=== PATIENT | male | born 1950 | race Caucasian/White ===

== ENCOUNTER → 2016-06-23 | Outpatient (REF) | payer OTHER | LOC: M LAB REF 09:20 | PROVIDERS: ATTEND Family Medicine | DX: I50.31 Acute diastolic (congestive) heart failure (principal) ==

== ENCOUNTER → 2016-07-03 | Outpatient (REF) | payer OTHER ==
[2016-07-03 13:37] LABS: RETIC HEMOGLOBIN CONTENT CHr 29.5 PG (24-36); RETICULOCYTE % ADVIA2120 1.2 % (0.5-1.5)
[2016-07-03 13:46] LABS: FERRITIN 71 NG/ML (26-388); PERCENT SATURATION 15.4 % (19.7-37.4); TOTAL IRON BINDING CAPACITY 410 UG/DL (250-450)
[2016-07-03 13:49] LABS: VITAMIN B12 LEVEL 333 PG/ML
[2016-07-03 13:50] LABS: FOLATE > 24.0 NG/ML
== END ==
LOC: M LAB REF 13:13
PROVIDERS: ATTEND Family Medicine
DX: D64.9 Anemia, unspecified (principal)

== ENCOUNTER → 2016-07-06 | Outpatient (CLI) | payer OTHER ==
[2016-07-06 13:08] LABS: INR 2.04
== END ==
LOC: M WUC 09:56
PROVIDERS: ATTEND Physician Assistant
DX: I48.91 Unspecified atrial fibrillation (principal)

== ENCOUNTER → 2016-07-15 | Outpatient (CLI) | payer OTHER ==
[2016-07-15 12:47] LABS: INR 1.23
[2016-07-15 13:05] LABS: ALBUMIN 3.7 GM/DL (3.2-5.2); CALCIUM LEVEL 8.9 MG/DL (8.8-10.2); CREATININE FOR GFR 1.87 MG/DL (0.70-1.30); GLOMERULAR FILTRATION RATE 38.6 (>49); PHOSPHORUS LEVEL 2.7 MG/DL (2.5-4.9); POTASSIUM SERUM 3.9 MEQ/L (3.5-5.1)
== END ==
LOC: M WUC 09:59
PROVIDERS: ATTEND Physician Assistant
DX: I50.32 Chronic diastolic (congestive) heart failure (principal); Z79.01 Long term (current) use of anticoagulants

== ENCOUNTER → 2016-07-21 | Outpatient (CLI) | payer OTHER ==
--- NOTE | 2016-07-21 11:03 | REP ---
TRANSRECTAL PROSTATE ULTRASOUND WITH ULTRASOUND GUIDANCE FOR PROSTATE BIOPSY: Transrectal prostate ultrasound performed. The size of the prostate is 6.1 x 6.4 x 6.2 cm for a total volume of 125 mL. Several nodular areas are seen which are hypoechoic, on the right four nodules are seen, with the largest 10 x 9 mm. On the left, a nodule is seen measuring 12 x 10 mm. Seminal vesicles appear symmetrical. Ultrasound guidance was provided for Dr. Valentine who performed ultrasound guided biopsy of the prostate. Signed by Denis Holloway MD 07/21/2016 02:01 P
== END | disposition home or self-care (01) ==
LOC: M SMT PRO 08:56
PROVIDERS: ATTEND Urology
DX: N41.8 Other inflammatory diseases of prostate (principal); R97.20 Elevated prostate specific antigen [PSA]
CPT/HCPCS: 55700; 76872; 76942; G0416

== ENCOUNTER 2016-07-22 20:03 | Emergency (ER) | payer OTHER ==
[2016-07-22 20:46] LABS: BASO % 0.3 % (0.0-1.0); EOS % 0.1 % (0.0-3.0); LARGE UNSTAINED CELL # 0.4 K/mm3 (0.0-0.4); LARGE UNSTAINED CELL % 2.5 % (0.0-4.0); LYMPH # 1.2 K/mm3 (1.5-4.5); LYMPH % 8.7 % (24.0-44.0); MEAN CORPUSCULAR HEMOGLOBIN 27.6 pg (27.0-33.0); MEAN CORPUSCULAR HGB CONC 32.8 g/dl (32.0-36.5); MEAN CORPUSCULAR VOLUME 84.2 fl (80.0-96.0); MONO # 0.7 K/mm3 (0.0-0.8); MONO % 4.8 % (0.0-5.0); NEUTROPHILS # 11.8 K/mm3 (1.8-7.7); NEUTROPHILS % 83.6 % (36.0-66.0); PLATELET COUNT, AUTOMATED 168 k/mm3 (150-450); RED CELL DISTRIBUTION WIDTH 15.7 % (11.5-14.5); WHITE BLOOD COUNT 14.1 K/mm3 (4.0-10.0)
[2016-07-22 20:54] LABS: INR 1.28
[2016-07-22 21:13] LABS: ALBUMIN/GLOBULIN RATIO 0.73 (1.00-1.93); BILIRUBIN,DIRECT 0.5 MG/DL (0.0-0.2); BILIRUBIN,TOTAL 1.1 MG/DL (0.2-1.0); CALCIUM LEVEL 8.6 MG/DL (8.8-10.2); CREATININE FOR GFR 2.12 MG/DL (0.70-1.30); GLOMERULAR FILTRATION RATE 33.4 (>49); POTASSIUM SERUM 4.3 MEQ/L (3.5-5.1); TOTAL PROTEIN 7.1 GM/DL (6.4-8.2)
[2016-07-22] MEDS ORDERED: CEFEPIME INJ 2 GM VIAL (MAXIPIME) (J0692) As Ordered ONE (21:28)
[2016-07-22] MEDS ORDERED: ADACEL/BOOSTRIX VACCINE (DIPHTH/PERTUSS/ACELL/TETANUS)0.5ML SYR (90715) As Ordered ONE (21:28)
--- NOTE | 2016-07-22 21:30 | REPUSA ---
HISTORY: Trauma TECHNIQUE: -CT head: Axial CT was obtained at 5 mm slice thickness from the skull base to the vertex without the use of intravenous contrast. -CT C-spine: Contiguous noncontrast transaxial 2.[address] images were obtained through the cervical sp ine. Reconstructions were then created in the axial plane at 1.25 mm from which reformations were gen erated in the coronal and sagittal planes. COMPARISON: None FINDINGS: CT head: No acute intracranial hemorrhage or evidence of acute transcortical ischemia. No intra-axial or extra ction fluid collection, subfalcine herniation, midline shift, or hydrocephalus. Prominence of the cor tical sulci and mild periventricular white matter lucencies noted more commonly due to age related at rophy and chronic small vessel ischemia respectively. The posterior fossa and brainstem are within normal limits. The osseous structures are intact. Bilate ral max or sinus mucosal thickening with retention cysts versus polyps. Remaining paranasal sinuses, mastoid air cells, orbital compartments, and extra cranial soft tissues are unremarkable. Bilateral e xternal auditory canal increased density is noted which are likely benign cerumen. CT C-spine: No acute fracture, dislocation, or suspicious lesion. No evidence of significant arthritis and alignment is maintained without spondylolisthesis. There are no significant disc herniations or evidence of canal stenosis. The foramina, vertebral body, and dis c space heights are preserved. Odontoid process is intact. The neck soft tissues and airways are unremarkable with no hematoma or swelling. IMPRESSION: No acute intracranial or C-spine injury. Remaining findings as described above.
--- NOTE | 2016-07-22 21:50 | REPUSA ---
CLINICAL HISTORY: Trauma TECHNIQUE: CT of the chest, abdomen and pelvis was performed without intravenous contrast by obtainin g contiguous CT axial slices from level of the vocal cords to the proximal femoral diaphyses. Multipl jonnathan reformats were obtained in the coronal and sagittal projections. COMPARISON: None FINDINGS : LOWER NECK: Thyroid gland is unremarkable. No mass, suspicious cystic lesion, or enlarged adenopathy identified. AXILLA AND MEDIASTINUM: No suspicious mass or enlarged adenopathy. HEART AND GREAT VESSELS: Status post median sternotomy and CABG with mild cardiomegaly and no pericar dial effusion. Great vessels demonstrate no aneurysmal dilatation. LUNGS/AIRWAYS/PLEURA: Mild dependent changes and minimal subpleural atelectasis toward the bases. No acute infiltrate, effusion, mass, suspicious nodule, or pneumothorax. LIVER: Normal in size with smooth contours. BILIARY SYSTEM: Status post cholecystectomy with no intrahepatic biliary ductal dilatation or calcifi ed biliary stones. PANCREAS: The pancreas is normal in size, contour and density. No suspicious cystic lesion or ductal dilatation. SPLEEN: Normal in size with no suspicious cystic lesion. ADRENALS: The adrenal glands are unremarkable. KIDNEYS/URETERS: The kidneys are normal in size. No calcified renal or ureteral calculi are seen. No suspicious cystic lesion or hydronephrosis. The ureters are not dilated. URINARY BLADDER: The urinary bladder is unremarkable without calcified stone, wall thickening or dive rticula seen. PROSTATE/SEMINAL VESICLES: Prostatomegaly measuring 5.4 x 5.5 cm. Seminal vesicles unremarkable. AORTA AND ILIAC ARTERIES: No aneurysmal dilatation of the aorta or iliac arteries is seen. LYMPH NODES: No enlarged adenopathy. GASTROINTESTINAL: The bowel is normal in caliber. No foci of small or large bowel wall thickening are seen. PERITONEUM: No abdominal or pelvic ascites is seen. No peritoneal mass is seen. Stranding and thicken ing of bilateral pararenal fascia which is nonspecific although more likely age-related. ABDOMINAL/PELVIC WALL: No hernia is identified. OSSEOUS STRUCTURES/SOFT TISSUES: No suspicious osseous lesion, acute fracture, or soft tissue abnorma lity. Multilevel degenerative spurring of the spine with mild degenerative disc changes. IMPRESSION : 1. No evidence of an acute thoracic or abdominal pelvic visceral injury or fracture. 2. Moderate prostatomegaly.
--- NOTE | 2016-07-22 22:54 | EDDOCDS ---
Physician Documentation [facility] Name: Ze Chu Age: 66 yrs Sex: Male : 1950 Arrival Date: 07/22/2016 Time: 20:03 Bed 2 Private MD: Disposition: 07/22/16 22:38 Transfer ordered to [facility]. Diagnosis are Fracture of skull and facial bones - depressed, clinical, Laceration without foreign body of other part of head - Multiple, Concussion with loss of consciousness of 30 minutes or less, Abnormal finding of blood chemistry, unspecified - Elevated Troponin with CKD. - Reason for transfer: Higher level of care. - Accepting physician is Dr. Blackburn. - Condition is Stable. - Problem is an acute exacerbation. - Symptoms have improved. Historical: - Allergies: no known allergies; - Home Meds: 1. metformin 1,000 mg Oral tab 1 tab in am. 1 tab at dinner and 1/2 tab at HS 2. glipizide 5 mg Oral tr24 1 tab once daily 3. Nitrostat 0.4 mg SL subl 1 tab every 5 minutes 4. furosemide 40 mg Oral tab 1 tab once daily 5. warfarin 2.5 mg Oral tab 1 tab once daily 6. pioglitazone 45 mg oral tab 1 tab once daily 7. simvastatin 80 mg Oral tab nightly 8. paroxetine HCl 10 mg oral tab 1 tab once daily 9. lisinopril 5 mg oral tab 1 tab once daily 10. aspirin 81 mg Oral tab 1 tab once daily 11. Vitamin C 250 mg Oral tab 500 mg daily - PMHx: Anxiety Disorder; Diabetes - NIDDM: controlled; Hypertension; ND; Hypercholesterolemia; - PSHx: Pacemaker Insertion; CABG; - Social history: Smoking status: Patient states was never smoker of tobacco. No barriers to communication noted, The patient speaks fluent Serbian, Speaks appropriately for age. - Family history: Not pertinent. - : The pt / caregiver states he / she is on anticoagulants: coumadin. Home medication list is obtained from list. - Exposure Risk Screening:: None identified. Vital Signs: 07/22 20:03 Pulse Ox 100% ; sls1 20:03 Weight 116.57 kg / 256.99 lbs; Height 66 in. (167.64 cm); sls1 20:31 BP 147 / 89 (auto/); tm5 20:33 Pulse 69 MON; Pulse Ox 94% on 4 lpm NC; tm5 20:40 BP 147 / 89; Pulse 69; Resp 18; jlm 20:45 BP 142 / 60 (auto/); tm5 20:45 Pulse 69 MON; Pulse Ox 93% on 4 lpm NC; tm5 21:00 BP 129 / 62 (auto/); tm5 21:00 Pulse 69 MON; Pulse Ox 93% ; tm5 21:15 BP 120 / 58 (auto/); tm5 21:15 Pulse 69 MON; Pulse Ox 95% on 4 lpm NC; Pain 4/10; tm5 21:30 BP 121 / 56 (auto/); tm5 21:30 Pulse 69 MON; Pulse Ox 92% on 4 lpm NC; Pain 3/10; tm5 21:45 BP 123 / 62 (auto/); tm5 21:45 Pulse 69 MON; Pulse Ox 97% on 4 lpm NC; tm5 22:00 Pulse 69 MON; Pulse Ox 98% ; tm5 22:00 BP 113 / 57 (auto/); tm5 22:15 BP 116 / 59 (auto/); tm5 22:15 Pulse 69 MON; Pulse Ox 98% ; tm5 22:30 BP 117 / 59 (auto/); tm5 22:30 Pulse 69 MON; Pulse Ox 100% ; tm5 22:45 BP 119 / 58 (auto/); tm5 22:45 Pulse 69 MON; Temp 98.3(O); Pulse Ox 99% on 4 lpm NC; Pain 3/10; tm5 20:03 Body Mass Index 41.48 (116.57 kg, 167.64 cm) sls1 [place] Coma Score: 20:07 Eye Response: to voice(3). Verbal Response: confused(4). Motor Response: obeys sls1 commands(6). Total: 13. MDM: 20:05 MRI Screening Tool - Place on chart, inform RN ordered. mm11 20:05 Voltage Tester/Pulse Ox/q 15 min VS ordered. mm11 20:05 IV Saline Lock x 2 ordered. mm11 20:05 Rhythm Strip to chart ordered. mm11 20:05 Intake and Output Hourly ordered. mm11 20:05 Trauma Level 1 Designation ordered. mm11 20:07 Basic Metabolic Profile Ordered. EDMS 20:07 CBC with Diff Ordered. EDMS 20:07 Cardiac Injury Profile Ordered. EDMS 20:07 Lipase Ordered. EDMS 20:07 Liver Profile Ordered. EDMS 20:07 PT/INR Ordered. EDMS 20:07 PTT Ordered. EDMS 20:07 Troponin Ordered. EDMS 20:07 Type & Screen Ordered. EDMS 20:07 Urinalysis Ordered. EDMS 20:07 CT Head Without Contrast Ordered. EDMS 20:07 CT Spine,Cervical W/o Contrast Ordered. EDMS 20:07 ECG WITH READING ER PHYS+CARDIAG ordered. EDMS 20:08 NOTHING BY MOUTH+DIET ordered. EDMS 20:08 CT Chest Without Contrast Ordered. EDMS 20:08 CT ABD & PELVIS: No Contrast Ordered. EDMS 20:09 NS 0.9% 1000 ml IV at 100 mL/hr continuous ordered. mm11 20:11 Financial registration complete. zo 20:34 [facility] [place] was scanned into [employer] and attached to record. zo 20:50 MRI Screening Tool - Place on chart, inform RN complete. kb5 21:15 CBC with Diff Reviewed. mm11 21:15 PT/INR Reviewed. mm11 21:15 Urinalysis Reviewed. mm11 21:15 PTT Reviewed. mm11 21:15 Type & Screen Reviewed. mm11 21:16 Basic Metabolic Profile Reviewed. mm11 21:16 Cardiac Injury Profile Reviewed. mm11 21:16 Liver Profile Reviewed. mm11 21:16 Troponin Reviewed. mm11 21:16 Lipase Reviewed. mm11 21:26 Cefepime 2 grams IVPB at 100 mL/hr once over 30 mins; dilute in 50mL of NS or D5W mm11 ordered. 21:26 Tetanus- Diptheria-Acellular Pertussis 0.5 ml IM once; Routine booster 10-64yrs, >64 mm11 with child contact [employer] ordered. 21:34 Type & Screen Reviewed. mm11 21:34 CT Head Without Contrast Reviewed. mm11 21:34 CT Spine,Cervical W/o Contrast Reviewed. mm11 21:52 Wound Care ordered. mm11 Administered Medications: 20:35 Drug: NS 0.9% 1000 ml Route: IV; Rate: 100 mL/hr; Site: right forearm; [facility] 22:51 Follow up: IV Status: Infusion continued on transport tm5 21:34 Drug: Tetanus- Diptheria-Acellular Pertussis 0.5 ml [diphth,pertussis(acel),tetanus 2.5 tm5 Lf unit-8 mcg-5 Lf/0.5mL IM syringe (0.5 mL)] {Service Support Representative: [employer]. Exp: 09/10/2018. Lot #: [id number]. } Route: IM; Site: left deltoid; 22:06 Follow up: Response: No Adverse Reaction tm5 21:35 Drug: Cefepime 2 grams [cefepime 2 gram solution for injection] Route: IVPB; Rate: 100 tm5 mL/hr; Infused Over: 30 mins; Site: left hand; 22:07 Follow up: Response: No Adverse Reaction; IV Status: Completed infusion; IV Intake: tm5 100ml Signatures: Dispatcher [employer] EDLeelee Spence Kristopher, BIJAN REGISTRY NURSE kb5 Manjit Villagomez DO DO mm11 Carole Jones RN RN sls1 Leah Womack RN RN tm5 Leora Mehta RN [facility] The chart was reviewed and I authenticate all verbal orders and agree with the evaluation and treatment provided.Corrections: (The following items were deleted from the chart) 21:17 20:05 Accucheck ordered. mm11 tm5 Attachments: 20:34 [facility] Payment Agreement zo MTDD
--- NOTE | 2016-07-22 22:54 | EDDOCDS ---
Nurse's Notes [facility] Name: Ze Chu Age: 66 yrs Sex: Male : 1950 Arrival Date: 07/22/2016 Time: 20:03 Bed 2 Private MD: Diagnosis: Fracture of skull and facial bones-depressed, clinical;Laceration without foreign body of other part of head-Multiple;Concussion with loss of consciousness of 30 minutes or less;Abnormal finding of blood chemistry, unspecified-Elevated Troponin with CKD Presentation: 07/22 20:04 Presenting complaint: EMS states: pt fell down unknown amount of stairs, with positive sls1 loss of consciousness, pt has multiple abrasions to head, back, extremities, possible skull fx per EMS, pt fully immobilized with collar backboard 02 via non rebreather, 18 gauge iv to right forearm, bg 127. 20:07 Presenting complaint: EMS states: pt had unwitnessed fall from unknown amount of sls1 stairs, positive loc, per EMS pt altered on arrival, on back board, c/o shoulder, back and stomach pain, large laceration to head with possible depression, oxygen per ems, 18 gauge to right forearm. Pt was on blood thinners recently stopped for prostate procedure. The patient experienced a loss of consciousness greater than five minutes. The patient has an altered level of consciousness. Mechanism of Injury: resulted from Fall from height greater than 5 stairs;. Adult Sepsis Screening: Patient has new or worsening altered mentation (1 point). Patient's respiratory rate is less than 22. Systolic blood pressure is greater than 100. Patient has a qSOFA score of 0- Negative Sepsis Screen. Suicide/Homicide risk assessment- Unable to assess, the patient has an altered level of consciousness. 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 Transition of care: patient was not received from another setting of care. Care prior to arrival: See EMS report. Placed on backboard. IV initiated. Glucose check. 127 Oxygen administered by EMS. 20:07 Acuity: [facility]ULWANT Level 2 [facility] 20:07 Method Of Arrival: Ambulance [facility] Triage Assessment: 20:15 General: Appears uncomfortable, Behavior is restless. Pain:. The patient is triaged at [facility] the bedside. See Assessment in Nurses Notes section of ED record. Neurological: Level of Consciousness is awake, Oriented to person, place, Reports loc. Respiratory: Airway is patent Respiratory effort is even, unlabored, Respiratory pattern is regular, symmetrical. Derm: large laceration to top of head, pt on back board, unable to fully assess. Historical: - Allergies: no known allergies; - Home Meds: 1. metformin 1,000 mg Oral tab 1 tab in am. 1 tab at dinner and 1/2 tab at HS 2. glipizide 5 mg Oral tr24 1 tab once daily 3. Nitrostat 0.4 mg SL subl 1 tab every 5 minutes 4. furosemide 40 mg Oral tab 1 tab once daily 5. warfarin 2.5 mg Oral tab 1 tab once daily 6. pioglitazone 45 mg oral tab 1 tab once daily 7. simvastatin 80 mg Oral tab nightly 8. paroxetine HCl 10 mg oral tab 1 tab once daily 9. lisinopril 5 mg oral tab 1 tab once daily 10. aspirin 81 mg Oral tab 1 tab once daily 11. Vitamin C 250 mg Oral tab 500 mg daily - PMHx: Anxiety Disorder; Diabetes - NIDDM: controlled; Hypertension; RI; Hypercholesterolemia; - PSHx: Pacemaker Insertion; CABG; - Social history: Smoking status: Patient states was never smoker of tobacco. No barriers to communication noted, The patient speaks fluent Barbadian, Speaks appropriately for age. - Family history: Not pertinent. - : The pt / caregiver states he / she is on anticoagulants: coumadin. Home medication list is obtained from list. - Exposure Risk Screening:: None identified. Screenin:43 Screening information is obtained from family members. Fall risk: At risk due to prior tm5 history of falls. Assistance ADL's: requires no assistance with activities of daily living. Abuse/DV Screen: The patient / caregiver reports he/she is: not in a situation that causes fear, pain or injury. Nutritional screening: No deficits noted. Advance Directives: Currently, there is a health care proxy, Lien. There is an active DNR order and the pt has a copy here at this time. home support is adequate. Assessment: 20:11 General: pt to cat scan. sls1 20:43 General: Appears uncomfortable, Behavior is appropriate for age, restless. Pain: tm5 Location: top of head Pain currently is 8 out of 10 on a pain scale. Quality of pain is described as throbbing. Neurological: Level of Consciousness is awake, alert, Oriented to person, place, time, Appellate Conferee are equal bilaterally Moves all extremities. Speech is normal, Facial symmetry appears normal, Facial symmetry: tongue is midline, Pupils are PERRLA. Cardiovascular: Rhythm is with capture. Respiratory: Airway is patent Respiratory effort is even, unlabored, Respiratory pattern is regular, symmetrical, Breath sounds are clear bilaterally. GI: Abdomen is obese, Bowel sounds present X 4 quads. Abd is soft and non tender X 4 quads. : No deficits noted. Derm: Skin is pink, warm & dry. normal. Musculoskeletal: cervical spine is tender. Circulation, motion, and sensation intact Capillary refill < 3 seconds in bilateral fingers pt placed in C-collar & log rolled by 4 off the backboard, pt remains lying flat. Injury Description: Abrasion sustained to anterior aspect of left shoulder is abrasions to left posterior shoulder & bilateral knees pt fell down 20stairs. Laceration sustained to top of head is clean, > 20 cm long, not bleeding, was sustained 1-2 hours ago. is bleeding a small amount. 20:53 General: MRI screen tool completed & placed on pt's chart . tm5 21:22 Reassessment: Patient appears in no apparent distress at this time. Patient states tm5 feeling better. Patient states symptoms have improved. Neurological: Level of Consciousness is awake, alert, Oriented to person, place, time, Appellate Conferee are equal bilaterally Moves all extremities. Full function Speech is normal, Facial symmetry appears normal, Facial symmetry: tongue is midline, Pupils are PERRLA. Cardiovascular: Rhythm is with capture. 22:08 Reassessment: Patient appears in no apparent distress at this time. no changes in tm5 assessment at this time, family remains at bedside with pt . Neurological: Level of Consciousness is awake, alert, Oriented to person, place, time, Appellate Conferee are equal bilaterally Moves all extremities. Speech is normal, Facial symmetry appears normal, Facial symmetry: tongue is midline, Pupils are PERRLA. 22:40 Reassessment: Patient appears in no apparent distress at this time. Patient states tm5 feeling better. Patient states symptoms have improved. C-collar removed by . 22:40 Neurological: Level of Consciousness is awake, alert, Oriented to person, place, time, tm5 Appellate Conferee are equal bilaterally Moves all extremities. Full function Speech is normal, Facial symmetry appears normal, Facial symmetry: tongue is midline, Pupils are PERRLA. 22:40 Cardiovascular: Rhythm is regular. tm5 Vital Signs: 20:03 Pulse Ox 100% ; sls1 20:03 Weight 116.57 kg; Height 66 in. (167.64 cm); sls1 20:31 BP 147 / 89 (auto/); tm5 20:33 Pulse 69 MON; Pulse Ox 94% on 4 lpm NC; tm5 20:40 BP 147 / 89; Pulse 69; Resp 18; jlm 20:45 BP 142 / 60 (auto/); tm5 20:45 Pulse 69 MON; Pulse Ox 93% on 4 lpm NC; tm5 21:00 BP 129 / 62 (auto/); tm5 21:00 Pulse 69 MON; Pulse Ox 93% ; tm5 21:15 BP 120 / 58 (auto/); tm5 21:15 Pulse 69 MON; Pulse Ox 95% on 4 lpm NC; Pain 4/10; tm5 21:30 BP 121 / 56 (auto/); tm5 21:30 Pulse 69 MON; Pulse Ox 92% on 4 lpm NC; Pain 3/10; tm5 21:45 BP 123 / 62 (auto/); tm5 21:45 Pulse 69 MON; Pulse Ox 97% on 4 lpm NC; tm5 22:00 Pulse 69 MON; Pulse Ox 98% ; tm5 22:00 BP 113 / 57 (auto/); tm5 22:15 BP 116 / 59 (auto/); tm5 22:15 Pulse 69 MON; Pulse Ox 98% ; tm5 22:30 BP 117 / 59 (auto/); tm5 22:30 Pulse 69 MON; Pulse Ox 100% ; tm5 22:45 BP 119 / 58 (auto/); tm5 22:45 Pulse 69 MON; Temp 98.3(O); Pulse Ox 99% on 4 lpm NC; Pain 3/10; tm5 20:03 Body Mass Index 41.48 (116.57 kg, 167.64 cm) sls1 Vitals: 20:15 Log In Time N/A - ambulance arrival. sls1 Rodger Coma Score: 20:07 Eye Response: to voice(3). Verbal Response: confused(4). Motor Response: obeys sls1 commands(6). Total: 13. ED Course: 20:04 Patient visited by Kal Bellamy PCA. kb5 20:04 Manjit Villagomez DO is Attending Physician. mm11 20:04 Patient visited by Manjit Villagomez DO. mm11 20:04 Patient moved to Waiting kb5 20:04 Patient moved to 2 kb5 20:10 Triage Initiated sls1 20:34 [facility] Payment Agreement was scanned into [employer] and attached to record. zo 20:41 Patient visited by Breonna Banks, Agriculture Mechanic. jlm 20:42 Pt visited by sister, . tm5 20:42 Inserted saline lock: 18 gauge in left hand and blood collected. The patient tolerated tm5 the procedure well. Labs drawn. (by ED staff). Sent per order to lab. Urine collected. Clean catch specimen. EKG done. (by ED staff). Reviewed by Manjit Villagomez DO. O2 via nasal cannula \T\ 4L/min. 20:42 Maintain field IV. Dressing intact. Good blood return noted. Site clean & dry. Gauge & tm5 site: #18 right Forearm. 20:43 The patient / caregiver is instructed regarding the plan of care and ED course. Cardiac tm5 monitor on. Pulse ox on. NIBP on. Warm blanket given. 20:43 Oral care given. tm5 20:59 Patient visited by Leah Womack RN. tm5 21:16 Patient visited by Leah Womack RN. tm5 21:21 Patient visited by Leah Womack RN. tm5 21:21 ED physician to see patient. Visited by MD at bedside to discuss plan of care with pt & tm5 family & the possibility of Transferring pt to [facility] for further evaluation, family & pt with + understanding of this. 21:24 Patient visited by Leah Womack RN. tm5 21:32 CT Head Without Contrast Returned. EDMS 21:32 CT Spine,Cervical W/o Contrast Returned. EDMS 21:34 Patient visited by Leah Womack RN. tm5 21:39 Patient visited by Leah Womack RN. tm5 21:39 Oral care given. tm5 22:07 Wound care to laceration located on left frontal area and left side of the back of head tm5 was cleaned with with NS solution, dressed with 4X4s, Patient tolerated well. 22:38 CT Chest Without Contrast Returned. EDMS 22:38 CT ABD & PELVIS: No Contrast Returned. EDMS 22:42 Report given to Tali Walker RN at [facility]. tm5 22:44 No procedures done that require assistance. tm5 22:47 Patient visited by Leah Womack RN. tm5 Administered Medications: 20:35 Drug: NS 0.9% 1000 ml Route: IV; Rate: 100 mL/hr; Site: right forearm; [facility] 22:51 Follow up: IV Status: Infusion continued on transport tm5 21:34 Drug: Tetanus- Diptheria-Acellular Pertussis 0.5 ml [diphth,pertussis(acel),tetanus 2.5 tm5 Lf unit-8 mcg-5 Lf/0.5mL IM syringe (0.5 mL)] {Legal Executive: [employer]. Exp: 09/10/2018. Lot #: [id number]. } Route: IM; Site: left deltoid; 22:06 Follow up: Response: No Adverse Reaction tm5 21:35 Drug: Cefepime 2 grams [cefepime 2 gram solution for injection] Route: IVPB; Rate: 100 tm5 mL/hr; Infused Over: 30 mins; Site: left hand; 22:07 Follow up: Response: No Adverse Reaction; IV Status: Completed infusion; IV Intake: tm5 100ml Intake: 22:07 IV: 100.00ml; Total: 100.00ml. tm5 Output: 20:54 Urine: 200.00ml (Voided); Total: 200.00ml. tm5 Order Results: Lab Order: Basic Metabolic Profile; SPEC'M 07/22/16 20:32 Test: GLUCOSE, FASTING; Value: 82; Range: 80-110; Units: MG/DL; Status: F Test: BLOOD UREA NITROGEN; Value: 33; Range: 7-18; Abnormal: Above high normal; Units: MG/DL; Status: F Test: CREATININE FOR GFR; Value: 2.12; Range: 0.70-1.30; Abnormal: Above high normal; Units: MG/DL; Status: F Test: GLOMERULAR FILTRATION RATE; Value: 33.4; Range: >49; Abnormal: Below low normal; Status: F Test: SODIUM LEVEL; Value: 142; Range: 136-145; Units: MEQ/L; Status: F Test: POTASSIUM SERUM; Value: 4.3; Range: 3.5-5.1; Units: MEQ/L; Status: F Test: CHLORIDE LEVEL; Value: 108; Range: 98-107; Abnormal: Above high normal; Units: MEQ/L; Status: F Test: CARBON DIOXIDE LEVEL; Value: 23; Range: 21-32; Units: MEQ/L; Status: F Test: ANION GAP; Value: 11; Range: 8-16; Units: MEQ/L; Status: F Test: CALCIUM LEVEL; Value: 8.6; Range: 8.8-10.2; Abnormal: Below low normal; Units: MG/DL; Status: F Test Note: ; Units are mL/min/1.73 m2 Chronic Kidney Disease Staging per NKF: Stage I & II GFR >=60 Normal to Mildly Decreased Stage III GFR 30-59 Moderately Decreased Stage IV GFR 15-29 Severely Decreased Stage V GFR <15 Very Little GFR Left ESRD GFR <15 on ENGRAVING OPERATOR Lab Order: CBC with Diff; SPEC'M 07/22/16 20:32 Test: WHITE BLOOD COUNT; Value: 14.1; Range: 4.0-10.0; Abnormal: Above high normal; Units: K/mm3; Status: F Test: RED BLOOD COUNT; Value: 4.24; Range: 4.30-6.10; Abnormal: Below low normal; Units: M/mm3; Status: F Test: HEMOGLOBIN; Value: 11.7; Range: 14.0-18.0; Abnormal: Below low normal; Units: g/dl; Status: F Test: HEMATOCRIT; Value: 35.7; Range: 42.0-52.0; Abnormal: Below low normal; Units: %; Status: F Test: MEAN CORPUSCULAR VOLUME; Value: 84.2; Range: 80.0-96.0; Units: fl; Status: F Test: MEAN CORPUSCULAR HEMOGLOBIN; Value: 27.6; Range: 27.0-33.0; Units: pg; Status: F Test: MEAN CORPUSCULAR HGB CONC; Value: 32.8; Range: 32.0-36.5; Units: g/dl; Status: F Test: RED CELL DISTRIBUTION WIDTH; Value: 15.7; Range: 11.5-14.5; Abnormal: Above high normal; Units: %; Status: F Test: PLATELET COUNT, AUTOMATED; Value: 168; Range: 150-450; Units: k/mm3; Status: F Test: NEUTROPHILS %; Value: 83.6; Range: 36.0-66.0; Abnormal: Above high normal; Units: %; Status: F Test: LYMPH %; Value: 8.7; Range: 24.0-44.0; Abnormal: Below low normal; Units: %; Status: F Test: MONO %; Value: 4.8; Range: 0.0-5.0; Units: %; Status: F Test: EOS %; Value: 0.1; Range: 0.0-3.0; Units: %; Status: F Test: BASO %; Value: 0.3; Range: 0.0-1.0; Units: %; Status: F Test: LARGE UNSTAINED CELL %; Value: 2.5; Range: 0.0-4.0; Units: %; Status: F Test: NEUTROPHILS #; Value: 11.8; Range: 1.8-7.7; Abnormal: Above high normal; Units: K/mm3; Status: F Test: LYMPH #; Value: 1.2; Range: 1.5-4.5; Abnormal: Below low normal; Units: K/mm3; Status: F Test: MONO #; Value: 0.7; Range: 0.0-0.8; Units: K/mm3; Status: F Test: EOS #; Value: 0.0; Range: 0.0-0.50; Units: K/mm3; Status: F Test: BASO #; Value: 0.0; Range: 0.0-0.2; Units: K/mm3; Status: F Test: LARGE UNSTAINED CELL #; Value: 0.4; Range: 0.0-0.4; Units: K/mm3; Status: F Lab Order: Cardiac Injury Profile; SPEC'M 07/22/16 20:32 Test: CPK CREATINE PHOSPHOKINASE; Value: 711; Range: 39-308; Abnormal: Above high normal; Units: U/L; Status: F Test: CK-MB VALUE MASS; Value: 1.7; Range: 0.0-3.6; Units: NG/ML; Status: F Test: MB/CK RELATIVE INDEX; Value: 0.23; Range: < OR =4; Status: F Test Note: ; DIAGNOSIS CRITERIA MMB ng/ml Relative Index (RI) NON-AMI < or = 5 N/A P[place] ZONE > 5 < or = 4 AMI > 5 > 4 Lab Order: Lipase; [facility] 07/22/16 20:32 Test: LIPASE; Value: 106; Range: 73-393; Units: U/L; Status: F Lab Order: Liver Profile; [facility] 07/22/16 20:32 Test: AST/SGOT; Value: 35; Range: 15-37; Units: U/L; Status: F Test: ALT/SGPT; Value: 31; Range: 12-78; Units: U/L; Status: F Test: ALKALINE PHOSPHATASE; Value: 71; Range: 45-117; Units: U/L; Status: F Test: BILIRUBIN,TOTAL; Value: 1.1; Range: 0.2-1.0; Abnormal: Above high normal; Units: MG/DL; Status: F Test: BILIRUBIN,DIRECT; Value: 0.5; Range: 0.0-0.2; Abnormal: Above high normal; Units: MG/DL; Status: F Test: TOTAL PROTEIN; Value: 7.1; Range: 6.4-8.2; Units: GM/DL; Status: F Test: ALBUMIN; Value: 3.0; Range: 3.2-5.2; Abnormal: Below low normal; Units: GM/DL; Status: F Test: ALBUMIN/GLOBULIN RATIO; Value: 0.73; Range: 1.00-1.93; Abnormal: Below low normal; Status: F Lab Order: PT/INR; [facility] 07/22/16 20:32 Test: PROTHROMBIN TIME; Value: 16.1; Range: 12.3-14.5; Abnormal: Above high normal; Units: SECONDS; Status: F Test: INR; Value: 1.28; Status: F Test Note: ; THERAPUTIC HUMAN INR VALUES INDICATIONS NORMAL RANGES PROPHYLAXIS/TREATMENT OF: VENOUS THROMBOSIS 2.0-3.0 PULMONARY EMBOLISM 2.0-3.0 PREVENTION OF SYSTEMIC EMBOLISM FROM: TISSUE HEART VALVES 2.0-3.0 ACUTE MYOCARDIAL INFARCTION 2.0-3.0 VALVULAR HEART DISEASE 2.0-3.0 ATRIAL FIBRILLATION 2.0-3.0 MECHANICAL VALVES(HIGH RISK) 2.5-3.5 RECURRENT MYOCARDIAL INFARCTION 2.5-3.5 Lab Order: PTT; [facility] 07/22/16 20:32 Test: PARTIAL THROMBOPLASTIN TIME; Value: 28.5; Range: 26.6-37.1; Units: SECONDS; Status: F Lab Order: Troponin; [facility] 07/22/16 20:32 Test: TROPONIN I; Value: 0.34; Range: < 0.10; Abnormal: Above high normal; Units: NG/ML; Status: F Test Note: ; Troponin I Reference Interval for Siemens MyClean LOCI: 99th Percentile= 0.00-0.045 ng/ml Risk Stratification: <= 0.10 ng/ml Decreased Risk for Adverse Clinical Events. 0.10-1.50 ng/ml Increased Risk for Adverse Clinical Events. Evaluation of additional criterion and/or repeat testing in 2-6 hours is suggested to rule out myocardial damage. >= 1.50 ng/ml Indicative of Myocardial Injury. Lab Order: Type & Screen; [facility] 07/22/16 20:32 Test: BLOOD TYPE; Value: A POS; Status: F Test: AB SCREEN (INDIRECT AP)GEL; Value: NEGATIVE; Status: F Lab Order: Urinalysis; [facility] 07/22/16 20:32 Test: APPEARANCE, URINE; Value: CLOUDY; Range: CLEAR; Abnormal: Above high normal; Status: F Test: COLOR, URINE; Value: JERMAINE; Range: YELLOW; Status: F Test: PH,URINE; Value: 5.0; Range: 5.0-9.0; Units: UNITS; Status: F Test: SPECIFIC GRAVITY URINE AUTO; Value: 1.020; Range: 1.002-1.035; Status: F Test: PROTEIN, URINE AUTO; Value: 2+; Range: NEGATIVE; Abnormal: Above high normal; Units: mg/dL; Status: F Test: GLUCOSE, URINE (UA) AUTO; Value: NEGATIVE; Range: NEGATIVE; Units: mg/dL; Status: F Test: KETONE, URINE AUTO; Value: NEGATIVE; Range: NEGATIVE; Units: mg/dL; Status: F Test: UROBILINOGEN, URINE AUTO; Value: 2.0; Range: 0.0-2.0; Abnormal: Above high normal; Units: mg/dL; Status: F Test: BILIRUBIN, URINE AUTO; Value: 1+; Range: NEGATIVE; Abnormal: Above high normal; Status: F Test: NITRITE, URINE AUTO; Value: NEGATIVE; Range: NEGATIVE; Status: F Test: LEUKOCYTE ESTERASE, URINE AUTO; Value: 2+; Range: NEGATIVE; Abnormal: Above high normal; Status: F Test: BLOOD, URINE BLOOD; Value: 3+; Range: NEGATIVE; Abnormal: Above high normal; Status: F Test: WBC, URINE AUTO; Value: 129; Range: 0-3; Abnormal: Above high normal; Units: /HPF; Status: F Test: RBC, URINE AUTO; Value: TNTC; Range: 0-3; Abnormal: Above high normal; Units: /HPF; Status: F Test: BACTERIA, URINE AUTO; Value: 1+; Range: NEGATIVE; Abnormal: Above high normal; Status: F Test: SQUAMOUS EPITHELIAL CELL UR AU; Value: 1; Range: 0-6; Units: /HPF; Status: F Test: MUCUS, URINE; Value: SMALL; Range: NEGATIVE; Status: F Test: HYALINE CAST, URINE AUTO; Value: 3; Range: 0-1; Units: /LPF; Status: F Test: AMORPHOUS SEDIMENT; Value: SMALL; Range: NEGATIVE; Abnormal: Above high normal; Status: F Radiology Order: CT Head Without Contrast Test: CT Head Without Contrast REASON FOR EXAMINATION: Trauma; ; HISTORY: Trauma; TECHNIQUE:; -CT head: Axial CT was obtained at 5 mm slice thickness from the skull base to the vertex without the; use of intravenous contrast.; -CT C-spine: Contiguous noncontrast transaxial 2.[address] images were obtained through the cervical sp; ine. Reconstructions were then created in the axial plane at 1.25 mm from which reformations were gen; erated in the coronal and sagittal planes.; COMPARISON: None; FINDINGS:; CT head:; No acute intracranial hemorrhage or evidence of acute transcortical ischemia. No intra-axial or extra; ction fluid collection, subfalcine herniation, midline shift, or hydrocephalus. Prominence of the cor; tical sulci and mild periventricular white matter lucencies noted more commonly due to age related at; rophy and chronic small vessel ischemia respectively.; The posterior fossa and brainstem are within normal limits. The osseous structures are intact. Bilate; ral max or sinus mucosal thickening with retention cysts versus polyps. Remaining paranasal sinuses,; mastoid air cells, orbital compartments, and extra cranial soft tissues are unremarkable. Bilateral e; xternal auditory canal increased density is noted which are likely benign cerumen.; CT C-spine:; No acute fracture, dislocation, or suspicious lesion.; No evidence of significant arthritis and alignment is maintained without spondylolisthesis. There are; no significant disc herniations or evidence of canal stenosis. The foramina, vertebral body, and dis; c space heights are preserved. Odontoid process is intact.; The neck soft tissues and airways are unremarkable with no hematoma or swelling.; ; IMPRESSION:; No acute intracranial or C-spine injury. Remaining findings as described above.; ; Radiology Order: CT Spine,Cervical W/o Contrast Test: CT Spine,Cervical W/o Contrast REASON FOR EXAMINATION: Trauma; ; HISTORY: Trauma; TECHNIQUE:; -CT head: Axial CT was obtained at 5 mm slice thickness from the skull base to the vertex without the; use of intravenous contrast.; -CT C-spine: Contiguous noncontrast transaxial 2.[address] images were obtained through the cervical sp; ine. Reconstructions were then created in the axial plane at 1.25 mm from which reformations were gen; erated in the coronal and sagittal planes.; COMPARISON: None; FINDINGS:; CT head:; No acute intracranial hemorrhage or evidence of acute transcortical ischemia. No intra-axial or extra; ction fluid collection, subfalcine herniation, midline shift, or hydrocephalus. Prominence of the cor; tical sulci and mild periventricular white matter lucencies noted more commonly due to age related at; rophy and chronic small vessel ischemia respectively.; The posterior fossa and brainstem are within normal limits. The osseous structures are intact. Bilate; ral max or sinus mucosal thickening with retention cysts versus polyps. Remaining paranasal sinuses,; mastoid air cells, orbital compartments, and extra cranial soft tissues are unremarkable. Bilateral e; xternal auditory canal increased density is noted which are likely benign cerumen.; CT C-spine:; No acute fracture, dislocation, or suspicious lesion.; No evidence of significant arthritis and alignment is maintained without spondylolisthesis. There are; no significant disc herniations or evidence of canal stenosis. The foramina, vertebral body, and dis; c space heights are preserved. Odontoid process is intact.; The neck soft tissues and airways are unremarkable with no hematoma or swelling.; ; IMPRESSION:; No acute intracranial or C-spine injury. Remaining findings as described above.; ; Radiology Order: CT Chest Without Contrast Test: CT Chest Without Contrast REASON FOR EXAMINATION: Trauma; ; CLINICAL HISTORY: Trauma; TECHNIQUE: CT of the chest, abdomen and pelvis was performed without intravenous contrast by obtainin; g contiguous CT axial slices from level of the vocal cords to the proximal femoral diaphyses. Multipl; jonnathan reformats were obtained in the coronal and sagittal projections.; COMPARISON: None; FINDINGS :; LOWER NECK: Thyroid gland is unremarkable. No mass, suspicious cystic lesion, or enlarged adenopathy; identified.; AXILLA AND MEDIASTINUM: No suspicious mass or enlarged adenopathy.; HEART AND GREAT VESSELS: Status post median sternotomy and CABG with mild cardiomegaly and no pericar; dial effusion. Great vessels demonstrate no aneurysmal dilatation.; LUNGS/AIRWAYS/PLEURA: Mild dependent changes and minimal subpleural atelectasis toward the bases. No; acute infiltrate, effusion, mass, suspicious nodule, or pneumothorax.; LIVER: Normal in size with smooth contours.; BILIARY SYSTEM: Status post cholecystectomy with no intrahepatic biliary ductal dilatation or calcifi; ed biliary stones.; PANCREAS: The pancreas is normal in size, contour and density. No suspicious cystic lesion or ductal; dilatation.; SPLEEN: Normal in size with no suspicious cystic lesion.; ADRENALS: The adrenal glands are unremarkable.; KIDNEYS/URETERS: The kidneys are normal in size. No calcified renal or ureteral calculi are seen. No; suspicious cystic lesion or hydronephrosis. The ureters are not dilated.; URINARY BLADDER: The urinary bladder is unremarkable without calcified stone, wall thickening or dive; rticula seen.; PROSTATE/SEMINAL VESICLES: Prostatomegaly measuring 5.4 x 5.5 cm. Seminal vesicles unremarkable.; AORTA AND ILIAC ARTERIES: No aneurysmal dilatation of the aorta or iliac arteries is seen.; LYMPH NODES: No enlarged adenopathy.; GASTROINTESTINAL: The bowel is normal in caliber. No foci of small or large bowel wall thickening are; seen.; PERITONEUM: No abdominal or pelvic ascites is seen. No peritoneal mass is seen. Stranding and thicken; ing of bilateral pararenal fascia which is nonspecific although more likely age-related.; ABDOMINAL/PELVIC WALL: No hernia is identified.; OSSEOUS STRUCTURES/SOFT TISSUES: No suspicious osseous lesion, acute fracture, or soft tissue abnorma; lity. Multilevel degenerative spurring of the spine with mild degenerative disc changes.; IMPRESSION :; ; 1. No evidence of an acute thoracic or abdominal pelvic visceral injury or fracture.; 2. Moderate prostatomegaly.; ; Radiology Order: CT ABD & PELVIS: No Contrast Test: CT ABD & PELVIS: No Contrast REASON FOR EXAMINATION: Trauma; ; CLINICAL HISTORY: Trauma; TECHNIQUE: CT of the chest, abdomen and pelvis was performed without intravenous contrast by obtainin; g contiguous CT axial slices from level of the vocal cords to the proximal femoral diaphyses. Multipl; jonnathan reformats were obtained in the coronal and sagittal projections.; COMPARISON: None; FINDINGS :; LOWER NECK: Thyroid gland is unremarkable. No mass, suspicious cystic lesion, or enlarged adenopathy; identified.; AXILLA AND MEDIASTINUM: No suspicious mass or enlarged adenopathy.; HEART AND GREAT VESSELS: Status post median sternotomy and CABG with mild cardiomegaly and no pericar; dial effusion. Great vessels demonstrate no aneurysmal dilatation.; LUNGS/AIRWAYS/PLEURA: Mild dependent changes and minimal subpleural atelectasis toward the bases. No; acute infiltrate, effusion, mass, suspicious nodule, or pneumothorax.; LIVER: Normal in size with smooth contours.; BILIARY SYSTEM: Status post cholecystectomy with no intrahepatic biliary ductal dilatation or calcifi; ed biliary stones.; PANCREAS: The pancreas is normal in size, contour and density. No suspicious cystic lesion or ductal; dilatation.; SPLEEN: Normal in size with no suspicious cystic lesion.; ADRENALS: The adrenal glands are unremarkable.; KIDNEYS/URETERS: The kidneys are normal in size. No calcified renal or ureteral calculi are seen. No; suspicious cystic lesion or hydronephrosis. The ureters are not dilated.; URINARY BLADDER: The urinary bladder is unremarkable without calcified stone, wall thickening or dive; rticula seen.; PROSTATE/SEMINAL VESICLES: Prostatomegaly measuring 5.4 x 5.5 cm. Seminal vesicles unremarkable.; AORTA AND ILIAC ARTERIES: No aneurysmal dilatation of the aorta or iliac arteries is seen.; LYMPH NODES: No enlarged adenopathy.; GASTROINTESTINAL: The bowel is normal in caliber. No foci of small or large bowel wall thickening are; seen.; PERITONEUM: No abdominal or pelvic ascites is seen. No peritoneal mass is seen. Stranding and thicken; ing of bilateral pararenal fascia which is nonspecific although more likely age-related.; ABDOMINAL/PELVIC WALL: No hernia is identified.; OSSEOUS STRUCTURES/SOFT TISSUES: No suspicious osseous lesion, acute fracture, or soft tissue abnorma; lity. Multilevel degenerative spurring of the spine with mild degenerative disc changes.; IMPRESSION :; ; 1. No evidence of an acute thoracic or abdominal pelvic visceral injury or fracture.; 2. Moderate prostatomegaly.; ; Outcome: 22:38 ER care complete, transfer ordered by Provider. mm11 22:42 Discharge Assessment: Patient awake, alert and oriented x 3. No cognitive and/or tm5 functional deficits noted. Patient verbalized understanding of disposition instructions. patient administered narcotics - no. The following High Risk Discharge criteria are identified: None. Transferred to [facility]. Transfer form completed. x-rays sent w/ patient. Condition: stable. CT Study completed. Property given to family member, Lien. 22:49 Transferred by EMS ground [facility] ambulance report to accompanying personnel tm5 Operation Supervisor T Ricardo & Basic Anna Marie Triplett. 22:53 Patient left the ED. sls1 Signatures: Dispatcher [employer] EDMS Leelee Meadows Kristopher, FACILITIES OPERATOR FACILITIES OPERATOR Manjit Flahetry DO DO mm11 Carole Jones, RN RN sls1 Leora MehtaRN RN [facility] Breonna Banks, Agriculture Mechanic Unit Leah McgrathRN RN tm5 Corrections: (The following items were deleted from the chart) 20:11 20:07 Presenting complaint: EMS states: pt had unwitnessed fall from unknown amount of sls1 stairs, positive loc, per EMS pt altered on arrival, on back board, c/o shoulder, back and stomach pain, large laceration to head with possible depression, oxygen per ems, 18 gauge to right forearm sls1 MTDD
--- NOTE | 2016-07-24 09:02 | ECGEPIP ---
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1950 Requested By: SHENA Greenwood Order Number: [id number] Reading MD: Mariia Montes Measurements Intervals [place] Rate: 76 P: FL: 0 QRS: 91 QRSD: 102 T: -82 QT: 441 QTc: 497 Interpretive Statements ATRIAL FIBRILLATION ELECTRONIC VENTRICULAR PACEMAKER -- CONTOUR ANALYSIS BASED ON INTRINSIC RHYTHM BORDERLINE RIGHT AXIS DEVIATION INCOMPLETE RIGHT BUNDLE BRANCH BLOCK ST DEVIATION AND MODERATE T-WAVE ABNORMALITY, CONSIDER ANTEROLATERAL ISCHEMIA ST DEVIATION AND MODERATE T-WAVE ABNORMALITY, CONSIDER INFERIOR ISCHEMIA CLINICAL CORRELATION 09/19/15 Electronically Signed On 07-24-2016 9:01:56 EST by Mariia Montes
--- NOTE | 2016-07-24 23:54 | EDDOCDS ---
Physician Documentation [facility] Name: Ze Chu Age: 66 yrs Sex: Male : 1950 Arrival Date: 07/22/2016 Time: 20:03 Bed 2 Private MD: Disposition: 07/22/16 22:38 Transfer ordered to [facility]. Diagnosis are Fracture of skull and facial bones - depressed, clinical, Laceration without foreign body of other part of head - Multiple, Concussion with loss of consciousness of 30 minutes or less, Abnormal finding of blood chemistry, unspecified - Elevated Troponin with CKD. - Reason for transfer: Higher level of care. - Accepting physician is Dr. Blackburn. - Condition is Stable. - Problem is an acute exacerbation. - Symptoms have improved. Historical: - Allergies: no known allergies; - Home Meds: 1. metformin 1,000 mg Oral tab 1 tab in am. 1 tab at dinner and 1/2 tab at HS 2. glipizide 5 mg Oral tr24 1 tab once daily 3. Nitrostat 0.4 mg SL subl 1 tab every 5 minutes 4. furosemide 40 mg Oral tab 1 tab once daily 5. warfarin 2.5 mg Oral tab 1 tab once daily 6. pioglitazone 45 mg oral tab 1 tab once daily 7. simvastatin 80 mg Oral tab nightly 8. paroxetine HCl 10 mg oral tab 1 tab once daily 9. lisinopril 5 mg oral tab 1 tab once daily 10. aspirin 81 mg Oral tab 1 tab once daily 11. Vitamin C 250 mg Oral tab 500 mg daily - PMHx: Anxiety Disorder; Diabetes - NIDDM: controlled; Hypertension; CT; Hypercholesterolemia; - PSHx: Pacemaker Insertion; CABG; - Social history: Smoking status: Patient states was never smoker of tobacco. No barriers to communication noted, The patient speaks fluent Turkmen, Speaks appropriately for age. - Family history: Not pertinent. - : The pt / caregiver states he / she is on anticoagulants: coumadin. Home medication list is obtained from list. - Exposure Risk Screening:: None identified. Vital Signs: 07/22 20:03 Pulse Ox 100% ; sls1 20:03 Weight 116.57 kg / 256.99 lbs; Height 66 in. (167.64 cm); sls1 20:31 BP 147 / 89 (auto/); tm5 20:33 Pulse 69 MON; Pulse Ox 94% on 4 lpm NC; tm5 20:40 BP 147 / 89; Pulse 69; Resp 18; jlm 20:45 BP 142 / 60 (auto/); tm5 20:45 Pulse 69 MON; Pulse Ox 93% on 4 lpm NC; tm5 21:00 BP 129 / 62 (auto/); tm5 21:00 Pulse 69 MON; Pulse Ox 93% ; tm5 21:15 BP 120 / 58 (auto/); tm5 21:15 Pulse 69 MON; Pulse Ox 95% on 4 lpm NC; Pain 4/10; tm5 21:30 BP 121 / 56 (auto/); tm5 21:30 Pulse 69 MON; Pulse Ox 92% on 4 lpm NC; Pain 3/10; tm5 21:45 BP 123 / 62 (auto/); tm5 21:45 Pulse 69 MON; Pulse Ox 97% on 4 lpm NC; tm5 22:00 Pulse 69 MON; Pulse Ox 98% ; tm5 22:00 BP 113 / 57 (auto/); tm5 22:15 BP 116 / 59 (auto/); tm5 22:15 Pulse 69 MON; Pulse Ox 98% ; tm5 22:30 BP 117 / 59 (auto/); tm5 22:30 Pulse 69 MON; Pulse Ox 100% ; tm5 22:45 BP 119 / 58 (auto/); tm5 22:45 Pulse 69 MON; Temp 98.3(O); Pulse Ox 99% on 4 lpm NC; Pain 3/10; tm5 20:03 Body Mass Index 41.48 (116.57 kg, 167.64 cm) sls1 [place] Coma Score: 20:07 Eye Response: to voice(3). Verbal Response: confused(4). Motor Response: obeys sls1 commands(6). Total: 13. MDM: 20:05 MRI Screening Tool - Place on chart, inform RN ordered. mm11 20:05 Vending Manager/Pulse Ox/q 15 min VS ordered. mm11 20:05 IV Saline Lock x 2 ordered. mm11 20:05 Rhythm Strip to chart ordered. mm11 20:05 Intake and Output Hourly ordered. mm11 20:05 Trauma Level 1 Designation ordered. mm11 20:07 Basic Metabolic Profile Ordered. EDMS 20:07 CBC with Diff Ordered. EDMS 20:07 Cardiac Injury Profile Ordered. EDMS 20:07 Lipase Ordered. EDMS 20:07 Liver Profile Ordered. EDMS 20:07 PT/INR Ordered. EDMS 20:07 PTT Ordered. EDMS 20:07 Troponin Ordered. EDMS 20:07 Type & Screen Ordered. EDMS 20:07 Urinalysis Ordered. EDMS 20:07 CT Head Without Contrast Ordered. EDMS 20:07 CT Spine,Cervical W/o Contrast Ordered. EDMS 20:07 ECG WITH READING ER PHYS+CARDIAG ordered. EDMS 20:08 NOTHING BY MOUTH+DIET ordered. EDMS 20:08 CT Chest Without Contrast Ordered. EDMS 20:08 CT ABD & PELVIS: No Contrast Ordered. EDMS 20:09 NS 0.9% 1000 ml IV at 100 mL/hr continuous ordered. mm11 20:11 Financial registration complete. zo 20:34 [facility] [place] was scanned into [employer] and attached to record. zo 20:50 MRI Screening Tool - Place on chart, inform RN complete. kb5 21:15 CBC with Diff Reviewed. mm11 21:15 PT/INR Reviewed. mm11 21:15 Urinalysis Reviewed. mm11 21:15 PTT Reviewed. mm11 21:15 Type & Screen Reviewed. mm11 21:16 Basic Metabolic Profile Reviewed. mm11 21:16 Cardiac Injury Profile Reviewed. mm11 21:16 Liver Profile Reviewed. mm11 21:16 Troponin Reviewed. mm11 21:16 Lipase Reviewed. mm11 21:26 Cefepime 2 grams IVPB at 100 mL/hr once over 30 mins; dilute in 50mL of NS or D5W mm11 ordered. 21:26 Tetanus- Diptheria-Acellular Pertussis 0.5 ml IM once; Routine booster 10-64yrs, >64 mm11 with child contact [employer] [employer] ordered. 21:34 Type & Screen Reviewed. mm11 21:34 CT Head Without Contrast Reviewed. mm11 21:34 CT Spine,Cervical W/o Contrast Reviewed. mm11 21:52 Wound Care ordered. mm11 07/23 10:05 Radiology Report was scanned into [employer] and attached to record. 12:49 T-Sheet-- Draft Copy was scanned into [employer] and attached to record. gb 12:49 ECG/EKG was scanned into [employer] and attached to record. gb Administered Medications: 07/22 20:35 Drug: NS 0.9% 1000 ml Route: IV; Rate: 100 mL/hr; Site: right forearm; [facility] 22:51 Follow up: IV Status: Infusion continued on transport tm5 21:34 Drug: Tetanus- Diptheria-Acellular Pertussis 0.5 ml [diphth,pertussis(acel),tetanus 2.5 tm5 Lf unit-8 mcg-5 Lf/0.5mL IM syringe (0.5 mL)] {Hematology Nurse Educator: [employer]. Exp: 09/10/2018. Lot #: [id number]. } Route: IM; Site: left deltoid; 22:06 Follow up: Response: No Adverse Reaction tm5 21:35 Drug: Cefepime 2 grams [cefepime 2 gram solution for injection] Route: IVPB; Rate: 100 tm5 mL/hr; Infused Over: 30 mins; Site: left hand; 22:07 Follow up: Response: No Adverse Reaction; IV Status: Completed infusion; IV Intake: tm5 100ml Signatures: Dispatcher [employer] EDMS Lali Cruz, Reg Reg gb Abdiel, Zoeann zo Kal Bellamy, YARD WAREHOUSE WORKER YARD WAREHOUSE WORKER kb5 Manjit Villagomez, DO mm11 Carole Jones RN RN sls1 Leah WomackRN RN tm5 Leora Mehta RN [facility] The chart was reviewed and I authenticate all verbal orders and agree with the evaluation and treatment provided.Corrections: (The following items were deleted from the chart) 21:17 20:05 Accucheck ordered. mm11 tm5 Attachments: 20:34 [facility] Payment Agreement zo 12:49 T-Sheet-- Draft Copy gb 12:49 ECG/EKG gb Chart Complete MTDD
--- NOTE | 2016-07-24 23:54 | EDDOCDS ---
Physician Documentation [facility] Name: Ze Chu Age: 66 yrs Sex: Male : 1950 Arrival Date: 07/22/2016 Time: 20:03 Bed 2 Private MD: Disposition: 07/22/16 22:38 Transfer ordered to [facility]. Diagnosis are Fracture of skull and facial bones - depressed, clinical, Laceration without foreign body of other part of head - Multiple, Concussion with loss of consciousness of 30 minutes or less, Abnormal finding of blood chemistry, unspecified - Elevated Troponin with CKD. - Reason for transfer: Higher level of care. - Accepting physician is Dr. Blackburn. - Condition is Stable. - Problem is an acute exacerbation. - Symptoms have improved. Historical: - Allergies: no known allergies; - Home Meds: 1. metformin 1,000 mg Oral tab 1 tab in am. 1 tab at dinner and 1/2 tab at HS 2. glipizide 5 mg Oral tr24 1 tab once daily 3. Nitrostat 0.4 mg SL subl 1 tab every 5 minutes 4. furosemide 40 mg Oral tab 1 tab once daily 5. warfarin 2.5 mg Oral tab 1 tab once daily 6. pioglitazone 45 mg oral tab 1 tab once daily 7. simvastatin 80 mg Oral tab nightly 8. paroxetine HCl 10 mg oral tab 1 tab once daily 9. lisinopril 5 mg oral tab 1 tab once daily 10. aspirin 81 mg Oral tab 1 tab once daily 11. Vitamin C 250 mg Oral tab 500 mg daily - PMHx: Anxiety Disorder; Diabetes - NIDDM: controlled; Hypertension; [place]; Hypercholesterolemia; - PSHx: Pacemaker Insertion; CABG; - Social history: Smoking status: Patient states was never smoker of tobacco. No barriers to communication noted, The patient speaks fluent Mongolian, Speaks appropriately for age. - Family history: Not pertinent. - : The pt / caregiver states he / she is on anticoagulants: coumadin. Home medication list is obtained from list. - Exposure Risk Screening:: None identified. Vital Signs: 07/22 20:03 Pulse Ox 100% ; sls1 20:03 Weight 116.57 kg / 256.99 lbs; Height 66 in. (167.64 cm); sls1 20:31 BP 147 / 89 (auto/); tm5 20:33 Pulse 69 MON; Pulse Ox 94% on 4 lpm NC; tm5 20:40 BP 147 / 89; Pulse 69; Resp 18; jlm 20:45 BP 142 / 60 (auto/); tm5 20:45 Pulse 69 MON; Pulse Ox 93% on 4 lpm NC; tm5 21:00 BP 129 / 62 (auto/); tm5 21:00 Pulse 69 MON; Pulse Ox 93% ; tm5 21:15 BP 120 / 58 (auto/); tm5 21:15 Pulse 69 MON; Pulse Ox 95% on 4 lpm NC; Pain 4/10; tm5 21:30 BP 121 / 56 (auto/); tm5 21:30 Pulse 69 MON; Pulse Ox 92% on 4 lpm NC; Pain 3/10; tm5 21:45 BP 123 / 62 (auto/); tm5 21:45 Pulse 69 MON; Pulse Ox 97% on 4 lpm NC; tm5 22:00 Pulse 69 MON; Pulse Ox 98% ; tm5 22:00 BP 113 / 57 (auto/); tm5 22:15 BP 116 / 59 (auto/); tm5 22:15 Pulse 69 MON; Pulse Ox 98% ; tm5 22:30 BP 117 / 59 (auto/); tm5 22:30 Pulse 69 MON; Pulse Ox 100% ; tm5 22:45 BP 119 / 58 (auto/); tm5 22:45 Pulse 69 MON; Temp 98.3(O); Pulse Ox 99% on 4 lpm NC; Pain 3/10; tm5 20:03 Body Mass Index 41.48 (116.57 kg, 167.64 cm) sls1 [place] Coma Score: 20:07 Eye Response: to voice(3). Verbal Response: confused(4). Motor Response: obeys sls1 commands(6). Total: 13. MDM: 20:05 MRI Screening Tool - Place on chart, inform RN ordered. mm11 20:05 Quality Control Assistant/Pulse Ox/q 15 min VS ordered. mm11 20:05 IV Saline Lock x 2 ordered. mm11 20:05 Rhythm Strip to chart ordered. mm11 20:05 Intake and Output Hourly ordered. mm11 20:05 Trauma Level 1 Designation ordered. mm11 20:07 Basic Metabolic Profile Ordered. EDMS 20:07 CBC with Diff Ordered. EDMS 20:07 Cardiac Injury Profile Ordered. EDMS 20:07 Lipase Ordered. EDMS 20:07 Liver Profile Ordered. EDMS 20:07 PT/INR Ordered. EDMS 20:07 PTT Ordered. EDMS 20:07 Troponin Ordered. EDMS 20:07 Type & Screen Ordered. EDMS 20:07 Urinalysis Ordered. EDMS 20:07 CT Head Without Contrast Ordered. EDMS 20:07 CT Spine,Cervical W/o Contrast Ordered. EDMS 20:07 ECG WITH READING ER PHYS+CARDIAG ordered. EDMS 20:08 NOTHING BY MOUTH+DIET ordered. EDMS 20:08 CT Chest Without Contrast Ordered. EDMS 20:08 CT ABD & PELVIS: No Contrast Ordered. EDMS 20:09 NS 0.9% 1000 ml IV at 100 mL/hr continuous ordered. mm11 20:11 Financial registration complete. zo 20:34 [facility] Payment Agreement was scanned into [employer] and attached to record. zo 20:50 MRI Screening Tool - Place on chart, inform RN complete. kb5 21:15 CBC with Diff Reviewed. mm11 21:15 PT/INR Reviewed. mm11 21:15 Urinalysis Reviewed. mm11 21:15 PTT Reviewed. mm11 21:15 Type & Screen Reviewed. mm11 21:16 Basic Metabolic Profile Reviewed. mm11 21:16 Cardiac Injury Profile Reviewed. mm11 21:16 Liver Profile Reviewed. mm11 21:16 Troponin Reviewed. mm11 21:16 Lipase Reviewed. mm11 21:26 Cefepime 2 grams IVPB at 100 mL/hr once over 30 mins; dilute in 50mL of NS or D5W mm11 ordered. 21:26 Tetanus- Diptheria-Acellular Pertussis 0.5 ml IM once; Routine booster 10-64yrs, >64 mm11 with child contact [place] [employer] ordered. 21:34 Type & Screen Reviewed. mm11 21:34 CT Head Without Contrast Reviewed. mm11 21:34 CT Spine,Cervical W/o Contrast Reviewed. mm11 21:52 Wound Care ordered. mm11 07/23 10:05 Radiology Report was scanned into [employer] and attached to record. 12:49 T-Sheet-- Draft Copy was scanned into [employer] and attached to record. gb 12:49 ECG/EKG was scanned into [employer] and attached to record. gb Administered Medications: 07/22 20:35 Drug: NS 0.9% 1000 ml Route: IV; Rate: 100 mL/hr; Site: right forearm; [facility] 22:51 Follow up: IV Status: Infusion continued on transport tm5 21:34 Drug: Tetanus- Diptheria-Acellular Pertussis 0.5 ml [diphth,pertussis(acel),tetanus 2.5 tm5 Lf unit-8 mcg-5 Lf/0.5mL IM syringe (0.5 mL)] {Industrial Electrician: [employer]. Exp: 09/10/2018. Lot #: [id number]. } Route: IM; Site: left deltoid; 22:06 Follow up: Response: No Adverse Reaction tm5 21:35 Drug: Cefepime 2 grams [cefepime 2 gram solution for injection] Route: IVPB; Rate: 100 tm5 mL/hr; Infused Over: 30 mins; Site: left hand; 22:07 Follow up: Response: No Adverse Reaction; IV Status: Completed infusion; IV Intake: tm5 100ml Signatures: Dispatcher [employer] EDMS Lali Cruz, Reg Reg gb Abdiel, Zoeann zo Kal Bellamy, DIRECTOR OF GIFT PLANNING DIRECTOR OF GIFT PLANNING kb5 Manjit Villagomez, DO mm11 Carole Jones RN RN sls1 Leah WomackRN RN tm5 Leora Mehta RN [facility] The chart was reviewed and I authenticate all verbal orders and agree with the evaluation and treatment provided.Corrections: (The following items were deleted from the chart) 21:17 20:05 Accucheck ordered. mm11 tm5 Attachments: 20:34 [facility] Payment Agreement zo 12:49 T-Sheet-- Draft Copy gb 12:49 ECG/EKG gb Chart Complete MTDD
--- NOTE | 2016-07-24 23:54 | EDDOCDS ---
Nurse's Notes [facility] Name: Elizabeth Painter Age: 66 yrs Sex: Male : 1950 Arrival Date: 07/22/2016 Time: 20:03 Bed 2 Private MD: Diagnosis: Fracture of skull and facial bones-depressed, clinical;Laceration without foreign body of other part of head-Multiple;Concussion with loss of consciousness of 30 minutes or less;Abnormal finding of blood chemistry, unspecified-Elevated Troponin with CKD Presentation: 07/22 20:04 Presenting complaint: EMS states: pt fell down unknown amount of stairs, with positive sls1 loss of consciousness, pt has multiple abrasions to head, back, extremities, possible skull fx per EMS, pt fully immobilized with collar backboard 02 via non rebreather, 18 gauge iv to right forearm, bg 127. 20:07 Presenting complaint: EMS states: pt had unwitnessed fall from unknown amount of sls1 stairs, positive loc, per EMS pt altered on arrival, on back board, c/o shoulder, back and stomach pain, large laceration to head with possible depression, oxygen per ems, 18 gauge to right forearm. Pt was on blood thinners recently stopped for prostate procedure. The patient experienced a loss of consciousness greater than five minutes. The patient has an altered level of consciousness. Mechanism of Injury: resulted from Fall from height greater than 5 stairs;. Adult Sepsis Screening: Patient has new or worsening altered mentation (1 point). Patient's respiratory rate is less than 22. Systolic blood pressure is greater than 100. Patient has a qSOFA score of 0- Negative Sepsis Screen. Suicide/Homicide risk assessment- Unable to assess, the patient has an altered level of consciousness. 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 Transition of care: patient was not received from another setting of care. Care prior to arrival: See EMS report. Placed on backboard. IV initiated. Glucose check. 127 Oxygen administered by EMS. 20:07 Acuity: KULWANT Level 2 [facility] 20:07 Method Of Arrival: Ambulance [facility] Triage Assessment: 20:15 General: Appears uncomfortable, Behavior is restless. Pain:. The patient is triaged at [facility] the bedside. See Assessment in Nurses Notes section of ED record. Neurological: Level of Consciousness is awake, Oriented to person, place, Reports loc. Respiratory: Airway is patent Respiratory effort is even, unlabored, Respiratory pattern is regular, symmetrical. Derm: large laceration to top of head, pt on back board, unable to fully assess. Historical: - Allergies: no known allergies; - Home Meds: 1. metformin 1,000 mg Oral tab 1 tab in am. 1 tab at dinner and 1/2 tab at HS 2. glipizide 5 mg Oral tr24 1 tab once daily 3. Nitrostat 0.4 mg SL subl 1 tab every 5 minutes 4. furosemide 40 mg Oral tab 1 tab once daily 5. warfarin 2.5 mg Oral tab 1 tab once daily 6. pioglitazone 45 mg oral tab 1 tab once daily 7. simvastatin 80 mg Oral tab nightly 8. paroxetine HCl 10 mg oral tab 1 tab once daily 9. lisinopril 5 mg oral tab 1 tab once daily 10. aspirin 81 mg Oral tab 1 tab once daily 11. Vitamin C 250 mg Oral tab 500 mg daily - PMHx: Anxiety Disorder; Diabetes - NIDDM: controlled; Hypertension; SC; Hypercholesterolemia; - PSHx: Pacemaker Insertion; CABG; - Social history: Smoking status: Patient states was never smoker of tobacco. No barriers to communication noted, The patient speaks fluent Irish, Speaks appropriately for age. - Family history: Not pertinent. - : The pt / caregiver states he / she is on anticoagulants: coumadin. Home medication list is obtained from list. - Exposure Risk Screening:: None identified. Screenin:43 Screening information is obtained from family members. Fall risk: At risk due to prior tm5 history of falls. Assistance ADL's: requires no assistance with activities of daily living. Abuse/DV Screen: The patient / caregiver reports he/she is: not in a situation that causes fear, pain or injury. Nutritional screening: No deficits noted. Advance Directives: Currently, there is a health care proxy, Lien. There is an active DNR order and the pt has a copy here at this time. home support is adequate. Assessment: 20:11 General: pt to cat scan. sls1 20:43 General: Appears uncomfortable, Behavior is appropriate for age, restless. Pain: tm5 Location: top of head Pain currently is 8 out of 10 on a pain scale. Quality of pain is described as throbbing. Neurological: Level of Consciousness is awake, alert, Oriented to person, place, time, Medical Director are equal bilaterally Moves all extremities. Speech is normal, Facial symmetry appears normal, Facial symmetry: tongue is midline, Pupils are PERRLA. Cardiovascular: Rhythm is with capture. Respiratory: Airway is patent Respiratory effort is even, unlabored, Respiratory pattern is regular, symmetrical, Breath sounds are clear bilaterally. GI: Abdomen is obese, Bowel sounds present X 4 quads. Abd is soft and non tender X 4 quads. : No deficits noted. Derm: Skin is pink, warm & dry. normal. Musculoskeletal: cervical spine is tender. Circulation, motion, and sensation intact Capillary refill < 3 seconds in bilateral fingers pt placed in C-collar & log rolled by 4 off the backboard, pt remains lying flat. Injury Description: Abrasion sustained to anterior aspect of left shoulder is abrasions to left posterior shoulder & bilateral knees pt fell down 20stairs. Laceration sustained to top of head is clean, > 20 cm long, not bleeding, was sustained 1-2 hours ago. is bleeding a small amount. 20:53 General: MRI screen tool completed & placed on pt's chart . tm5 21:22 Reassessment: Patient appears in no apparent distress at this time. Patient states tm5 feeling better. Patient states symptoms have improved. Neurological: Level of Consciousness is awake, alert, Oriented to person, place, time, Medical Director are equal bilaterally Moves all extremities. Full function Speech is normal, Facial symmetry appears normal, Facial symmetry: tongue is midline, Pupils are PERRLA. Cardiovascular: Rhythm is with capture. 22:08 Reassessment: Patient appears in no apparent distress at this time. no changes in tm5 assessment at this time, family remains at bedside with pt . Neurological: Level of Consciousness is awake, alert, Oriented to person, place, time, Medical Director are equal bilaterally Moves all extremities. Speech is normal, Facial symmetry appears normal, Facial symmetry: tongue is midline, Pupils are PERRLA. 22:40 Reassessment: Patient appears in no apparent distress at this time. Patient states tm5 feeling better. Patient states symptoms have improved. C-collar removed by . 22:40 Neurological: Level of Consciousness is awake, alert, Oriented to person, place, time, tm5 Medical Director are equal bilaterally Moves all extremities. Full function Speech is normal, Facial symmetry appears normal, Facial symmetry: tongue is midline, Pupils are PERRLA. 22:40 Cardiovascular: Rhythm is regular. tm5 Vital Signs: 20:03 Pulse Ox 100% ; sls1 20:03 Weight 116.57 kg; Height 66 in. (167.64 cm); sls1 20:31 BP 147 / 89 (auto/); tm5 20:33 Pulse 69 MON; Pulse Ox 94% on 4 lpm NC; tm5 20:40 BP 147 / 89; Pulse 69; Resp 18; jlm 20:45 BP 142 / 60 (auto/); tm5 20:45 Pulse 69 MON; Pulse Ox 93% on 4 lpm NC; tm5 21:00 BP 129 / 62 (auto/); tm5 21:00 Pulse 69 MON; Pulse Ox 93% ; tm5 21:15 BP 120 / 58 (auto/); tm5 21:15 Pulse 69 MON; Pulse Ox 95% on 4 lpm NC; Pain 4/10; tm5 21:30 BP 121 / 56 (auto/); tm5 21:30 Pulse 69 MON; Pulse Ox 92% on 4 lpm NC; Pain 3/10; tm5 21:45 BP 123 / 62 (auto/); tm5 21:45 Pulse 69 MON; Pulse Ox 97% on 4 lpm NC; tm5 22:00 Pulse 69 MON; Pulse Ox 98% ; tm5 22:00 BP 113 / 57 (auto/); tm5 22:15 BP 116 / 59 (auto/); tm5 22:15 Pulse 69 MON; Pulse Ox 98% ; tm5 22:30 BP 117 / 59 (auto/); tm5 22:30 Pulse 69 MON; Pulse Ox 100% ; tm5 22:45 BP 119 / 58 (auto/); tm5 22:45 Pulse 69 MON; Temp 98.3(O); Pulse Ox 99% on 4 lpm NC; Pain 3/10; tm5 20:03 Body Mass Index 41.48 (116.57 kg, 167.64 cm) sls1 Vitals: 20:15 Log In Time N/A - ambulance arrival. sls1 Rodger Coma Score: 20:07 Eye Response: to voice(3). Verbal Response: confused(4). Motor Response: obeys sls1 commands(6). Total: 13. ED Course: 20:04 Patient visited by Kal Bellamy PCA. kb5 20:04 Shena Villagomez DO is Attending Physician. mm11 20:04 Patient visited by Shena Villagomez DO. mm11 20:04 Patient moved to Waiting kb5 20:04 Patient moved to 2 kb5 20:10 Triage Initiated sls1 20:34 [facility] Payment Agreement was scanned into [employer] and attached to record. zo 20:41 Patient visited by Breonna Banks, Branch Chief. jlm 20:42 Pt visited by sister, . tm5 20:42 Inserted saline lock: 18 gauge in left hand and blood collected. The patient tolerated tm5 the procedure well. Labs drawn. (by ED staff). Sent per order to lab. Urine collected. Clean catch specimen. EKG done. (by ED staff). Reviewed by Shena Villagomez DO. O2 via nasal cannula \T\ 4L/min. 20:42 Maintain field IV. Dressing intact. Good blood return noted. Site clean & dry. Gauge & tm5 site: #18 right Forearm. 20:43 The patient / caregiver is instructed regarding the plan of care and ED course. Cardiac tm5 monitor on. Pulse ox on. NIBP on. Warm blanket given. 20:43 Oral care given. tm5 20:59 Patient visited by Leah Womack RN. tm5 21:16 Patient visited by Leah Womack RN. tm5 21:21 Patient visited by Leah Womack RN. tm5 21:21 ED physician to see patient. Visited by MD at bedside to discuss plan of care with pt & tm5 family & the possibility of Transferring pt to [facility] for further evaluation, family & pt with + understanding of this. 21:24 Patient visited by Leah Womcak RN. tm5 21:32 CT Head Without Contrast Returned. EDMS 21:32 CT Spine,Cervical W/o Contrast Returned. EDMS 21:34 Patient visited by Leah Womack RN. tm5 21:39 Patient visited by Leah Womack RN. tm5 21:39 Oral care given. tm5 22:07 Wound care to laceration located on left frontal area and left side of the back of head tm5 was cleaned with with NS solution, dressed with 4X4s, Patient tolerated well. 22:38 CT Chest Without Contrast Returned. EDMS 22:38 CT ABD & PELVIS: No Contrast Returned. EDMS 22:42 Report given to Tali Walker RN at [facility]. tm5 22:44 No procedures done that require assistance. tm5 22:47 Patient visited by Leah Womack RN. tm5 07/23 10:05 Radiology Report was scanned into Mibio and attached to record. gb 12:49 T-Sheet-- Draft Copy was scanned into [employer] and attached to record. gb 12:49 ECG/EKG was scanned into [employer] and attached to record. gb 02 09:17 EKG-ADULT Returned. 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 Exp: 09/10/2018. Lot #: [id number]. } Route: IM; Site: left deltoid; 22:06 Follow up: Response: No Adverse Reaction tm5 21:35 Drug: Cefepime 2 grams [cefepime 2 gram solution for injection] Route: IVPB; Rate: 100 tm5 mL/hr; Infused Over: 30 mins; Site: left hand; 22:07 Follow up: Response: No Adverse Reaction; IV Status: Completed infusion; IV Intake: tm5 100ml Intake: 22:07 IV: 100.00ml; Total: 100.00ml. tm5 Output: 20:54 Urine: 200.00ml (Voided); Total: 200.00ml. tm5 Order Results: Lab Order: Basic Metabolic Profile; SPEC'M 07/22/16 20:32 Test: GLUCOSE, FASTING; Value: 82; Range: 80-110; Units: MG/DL; Status: F Test: BLOOD UREA NITROGEN; Value: 33; Range: 7-18; Abnormal: Above high normal; Units: MG/DL; Status: F Test: CREATININE FOR GFR; Value: 2.12; Range: 0.70-1.30; Abnormal: Above high normal; Units: MG/DL; Status: F Test: GLOMERULAR FILTRATION RATE; Value: 33.4; Range: >49; Abnormal: Below low normal; Status: F Test: SODIUM LEVEL; Value: 142; Range: 136-145; Units: MEQ/L; Status: F Test: POTASSIUM SERUM; Value: 4.3; Range: 3.5-5.1; Units: MEQ/L; Status: F Test: CHLORIDE LEVEL; Value: 108; Range: 98-107; Abnormal: Above high normal; Units: MEQ/L; Status: F Test: CARBON DIOXIDE LEVEL; Value: 23; Range: 21-32; Units: MEQ/L; Status: F Test: ANION GAP; Value: 11; Range: 8-16; Units: MEQ/L; Status: F Test: CALCIUM LEVEL; Value: 8.6; Range: 8.8-10.2; Abnormal: Below low normal; Units: MG/DL; Status: F Test Note: ; Units are mL/min/1.73 m2 Chronic Kidney Disease Staging per NKF: Stage I & II GFR >=60 Normal to Mildly Decreased Stage III GFR 30-59 Moderately Decreased Stage IV GFR 15-29 Severely Decreased Stage V GFR <15 Very Little GFR Left ESRD GFR <15 on REPORTS ANALYST Lab Order: CBC with Diff; SPEC'M 07/22/16 20:32 Test: WHITE BLOOD COUNT; Value: 14.1; Range: 4.0-10.0; Abnormal: Above high normal; Units: K/mm3; Status: F Test: RED BLOOD COUNT; Value: 4.24; Range: 4.30-6.10; Abnormal: Below low normal; Units: M/mm3; Status: F Test: HEMOGLOBIN; Value: 11.7; Range: 14.0-18.0; Abnormal: Below low normal; Units: g/dl; Status: F Test: HEMATOCRIT; Value: 35.7; Range: 42.0-52.0; Abnormal: Below low normal; Units: %; Status: F Test: MEAN CORPUSCULAR VOLUME; Value: 84.2; Range: 80.0-96.0; Units: fl; Status: F Test: MEAN CORPUSCULAR HEMOGLOBIN; Value: 27.6; Range: 27.0-33.0; Units: pg; Status: F Test: MEAN CORPUSCULAR HGB CONC; Value: 32.8; Range: 32.0-36.5; Units: g/dl; Status: F Test: RED CELL DISTRIBUTION WIDTH; Value: 15.7; Range: 11.5-14.5; Abnormal: Above high normal; Units: %; Status: F Test: PLATELET COUNT, AUTOMATED; Value: 168; Range: 150-450; Units: k/mm3; Status: F Test: NEUTROPHILS %; Value: 83.6; Range: 36.0-66.0; Abnormal: Above high normal; Units: %; Status: F Test: LYMPH %; Value: 8.7; Range: 24.0-44.0; Abnormal: Below low normal; Units: %; Status: F Test: MONO %; Value: 4.8; Range: 0.0-5.0; Units: %; Status: F Test: EOS %; Value: 0.1; Range: 0.0-3.0; Units: %; Status: F Test: BASO %; Value: 0.3; Range: 0.0-1.0; Units: %; Status: F Test: LARGE UNSTAINED CELL %; Value: 2.5; Range: 0.0-4.0; Units: %; Status: F Test: NEUTROPHILS #; Value: 11.8; Range: 1.8-7.7; Abnormal: Above high normal; Units: K/mm3; Status: F Test: LYMPH #; Value: 1.2; Range: 1.5-4.5; Abnormal: Below low normal; Units: K/mm3; Status: F Test: MONO #; Value: 0.7; Range: 0.0-0.8; Units: K/mm3; Status: F Test: EOS #; Value: 0.0; Range: 0.0-0.50; Units: K/mm3; Status: F Test: BASO #; Value: 0.0; Range: 0.0-0.2; Units: K/mm3; Status: F Test: LARGE UNSTAINED CELL #; Value: 0.4; Range: 0.0-0.4; Units: K/mm3; Status: F Lab Order: Cardiac Injury Profile; SPEC'M 07/22/16 20:32 Test: CPK CREATINE PHOSPHOKINASE; Value: 711; Range: 39-308; Abnormal: Above high normal; Units: U/L; Status: F Test: CK-MB VALUE MASS; Value: 1.7; Range: 0.0-3.6; Units: NG/ML; Status: F Test: MB/CK RELATIVE INDEX; Value: 0.23; Range: < OR =4; Status: F Test Note: ; DIAGNOSIS CRITERIA MMB ng/ml Relative Index (RI) NON-AMI < or = 5 N/A [place] > 5 < or = 4 AMI > 5 > 4 Lab Order: Lipase; [facility] 07/22/16 20:32 Test: LIPASE; Value: 106; Range: 73-393; Units: U/L; Status: F Lab Order: Liver Profile; [facility] 07/22/16 20:32 Test: AST/SGOT; Value: 35; Range: 15-37; Units: U/L; Status: F Test: ALT/SGPT; Value: 31; Range: 12-78; Units: U/L; Status: F Test: ALKALINE PHOSPHATASE; Value: 71; Range: 45-117; Units: U/L; Status: F Test: BILIRUBIN,TOTAL; Value: 1.1; Range: 0.2-1.0; Abnormal: Above high normal; Units: MG/DL; Status: F Test: BILIRUBIN,DIRECT; Value: 0.5; Range: 0.0-0.2; Abnormal: Above high normal; Units: MG/DL; Status: F Test: TOTAL PROTEIN; Value: 7.1; Range: 6.4-8.2; Units: GM/DL; Status: F Test: ALBUMIN; Value: 3.0; Range: 3.2-5.2; Abnormal: Below low normal; Units: GM/DL; Status: F Test: ALBUMIN/GLOBULIN RATIO; Value: 0.73; Range: 1.00-1.93; Abnormal: Below low normal; Status: F Lab Order: PT/INR; [facility] 07/22/16 20:32 Test: PROTHROMBIN TIME; Value: 16.1; Range: 12.3-14.5; Abnormal: Above high normal; Units: SECONDS; Status: F Test: INR; Value: 1.28; Status: F Test Note: ; THERAPUTIC HUMAN INR VALUES INDICATIONS NORMAL RANGES PROPHYLAXIS/TREATMENT OF: VENOUS THROMBOSIS 2.0-3.0 PULMONARY EMBOLISM 2.0-3.0 PREVENTION OF SYSTEMIC EMBOLISM FROM: TISSUE HEART VALVES 2.0-3.0 ACUTE MYOCARDIAL INFARCTION 2.0-3.0 VALVULAR HEART DISEASE 2.0-3.0 ATRIAL FIBRILLATION 2.0-3.0 MECHANICAL VALVES(HIGH RISK) 2.5-3.5 RECURRENT MYOCARDIAL INFARCTION 2.5-3.5 Lab Order: PTT; [facility] 07/22/16 20:32 Test: PARTIAL THROMBOPLASTIN TIME; Value: 28.5; Range: 26.6-37.1; Units: SECONDS; Status: F Lab Order: Troponin; [facility] 07/22/16 20:32 Test: TROPONIN I; Value: 0.34; Range: < 0.10; Abnormal: Above high normal; Units: NG/ML; Status: F Test Note: ; Troponin I Reference Interval for [place] LOCI: 99th Percentile= 0.00-0.045 ng/ml Risk Stratification: <= 0.10 ng/ml Decreased Risk for Adverse Clinical Events. 0.10-1.50 ng/ml Increased Risk for Adverse Clinical Events. Evaluation of additional criterion and/or repeat testing in 2-6 hours is suggested to rule out myocardial damage. >= 1.50 ng/ml Indicative of Myocardial Injury. Lab Order: Type & Screen; [facility] 07/22/16 20:32 Test: BLOOD TYPE; Value: A POS; Status: F Test: AB SCREEN (INDIRECT AP)GEL; Value: NEGATIVE; Status: F Lab Order: Urinalysis; [facility] 07/22/16 20:32 Test: APPEARANCE, URINE; Value: CLOUDY; Range: CLEAR; Abnormal: Above high normal; Status: F Test: COLOR, URINE; Value: JERMAINE; Range: YELLOW; Status: F Test: PH,URINE; Value: 5.0; Range: 5.0-9.0; Units: UNITS; Status: F Test: SPECIFIC GRAVITY URINE AUTO; Value: 1.020; Range: 1.002-1.035; Status: F Test: PROTEIN, URINE AUTO; Value: 2+; Range: NEGATIVE; Abnormal: Above high normal; Units: mg/dL; Status: F Test: GLUCOSE, URINE (UA) AUTO; Value: NEGATIVE; Range: NEGATIVE; Units: mg/dL; Status: F Test: KETONE, URINE AUTO; Value: NEGATIVE; Range: NEGATIVE; Units: mg/dL; Status: F Test: UROBILINOGEN, URINE AUTO; Value: 2.0; Range: 0.0-2.0; Abnormal: Above high normal; Units: mg/dL; Status: F Test: BILIRUBIN, URINE AUTO; Value: 1+; Range: NEGATIVE; Abnormal: Above high normal; Status: F Test: NITRITE, URINE AUTO; Value: NEGATIVE; Range: NEGATIVE; Status: F Test: LEUKOCYTE ESTERASE, URINE AUTO; Value: 2+; Range: NEGATIVE; Abnormal: Above high normal; Status: F Test: BLOOD, URINE BLOOD; Value: 3+; Range: NEGATIVE; Abnormal: Above high normal; Status: F Test: WBC, URINE AUTO; Value: 129; Range: 0-3; Abnormal: Above high normal; Units: /HPF; Status: F Test: RBC, URINE AUTO; Value: TNTC; Range: 0-3; Abnormal: Above high normal; Units: /HPF; Status: F Test: BACTERIA, URINE AUTO; Value: 1+; Range: NEGATIVE; Abnormal: Above high normal; Status: F Test: SQUAMOUS EPITHELIAL CELL UR AU; Value: 1; Range: 0-6; Units: /HPF; Status: F Test: MUCUS, URINE; Value: SMALL; Range: NEGATIVE; Status: F Test: HYALINE CAST, URINE AUTO; Value: 3; Range: 0-1; Units: /LPF; Status: F Test: AMORPHOUS SEDIMENT; Value: SMALL; Range: NEGATIVE; Abnormal: Above high normal; Status: F Radiology Order: CT Head Without Contrast Test: CT Head Without Contrast REASON FOR EXAMINATION: Trauma; ; HISTORY: Trauma; TECHNIQUE:; -CT head: Axial CT was obtained at 5 mm slice thickness from the skull base to the vertex without the; use of intravenous contrast.; -CT C-spine: Contiguous noncontrast transaxial 2.[address] images were obtained through the cervical sp; ine. Reconstructions were then created in the axial plane at 1.25 mm from which reformations were gen; erated in the coronal and sagittal planes.; COMPARISON: None; FINDINGS:; CT head:; No acute intracranial hemorrhage or evidence of acute transcortical ischemia. No intra-axial or extra; ction fluid collection, subfalcine herniation, midline shift, or hydrocephalus. Prominence of the cor; tical sulci and mild periventricular white matter lucencies noted more commonly due to age related at; rophy and chronic small vessel ischemia respectively.; The posterior fossa and brainstem are within normal limits. The osseous structures are intact. Bilate; ral max or sinus mucosal thickening with retention cysts versus polyps. Remaining paranasal sinuses,; mastoid air cells, orbital compartments, and extra cranial soft tissues are unremarkable. Bilateral e; xternal auditory canal increased density is noted which are likely benign cerumen.; CT C-spine:; No acute fracture, dislocation, or suspicious lesion.; No evidence of significant arthritis and alignment is maintained without spondylolisthesis. There are; no significant disc herniations or evidence of canal stenosis. The foramina, vertebral body, and dis; c space heights are preserved. Odontoid process is intact.; The neck soft tissues and airways are unremarkable with no hematoma or swelling.; ; IMPRESSION:; No acute intracranial or C-spine injury. Remaining findings as described above.; ; Radiology Order: CT Spine,Cervical W/o Contrast Test: CT Spine,Cervical W/o Contrast REASON FOR EXAMINATION: Trauma; ; HISTORY: Trauma; TECHNIQUE:; -CT head: Axial CT was obtained at 5 mm slice thickness from the skull base to the vertex without the; use of intravenous contrast.; -CT C-spine: Contiguous noncontrast transaxial 2.[address] images were obtained through the cervical sp; ine. Reconstructions were then created in the axial plane at 1.25 mm from which reformations were gen; erated in the coronal and sagittal planes.; COMPARISON: None; FINDINGS:; CT head:; No acute intracranial hemorrhage or evidence of acute transcortical ischemia. No intra-axial or extra; ction fluid collection, subfalcine herniation, midline shift, or hydrocephalus. Prominence of the cor; tical sulci and mild periventricular white matter lucencies noted more commonly due to age related at; rophy and chronic small vessel ischemia respectively.; The posterior fossa and brainstem are within normal limits. The osseous structures are intact. Bilate; ral max or sinus mucosal thickening with retention cysts versus polyps. Remaining paranasal sinuses,; mastoid air cells, orbital compartments, and extra cranial soft tissues are unremarkable. Bilateral e; xternal auditory canal increased density is noted which are likely benign cerumen.; CT C-spine:; No acute fracture, dislocation, or suspicious lesion.; No evidence of significant arthritis and alignment is maintained without spondylolisthesis. There are; no significant disc herniations or evidence of canal stenosis. The foramina, vertebral body, and dis; c space heights are preserved. Odontoid process is intact.; The neck soft tissues and airways are unremarkable with no hematoma or swelling.; ; IMPRESSION:; No acute intracranial or C-spine injury. 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; : 1950 Requested By: SHENA Greenwood; Order Number: [id number] Reading MD: Mariia Montes; Measurements; Intervals [place]; Rate: 76 P:; AL: 0 QRS: 91; QRSD: 102 T: -82; QT: 441; QTc: 497; Interpretive Statements; ATRIAL FIBRILLATION; ELECTRONIC VENTRICULAR PACEMAKER -- CONTOUR ANALYSIS BASED ON INTRINSIC; RHYTHM; BORDERLINE RIGHT AXIS DEVIATION; INCOMPLETE RIGHT BUNDLE BRANCH BLOCK; ST DEVIATION AND MODERATE T-WAVE ABNORMALITY, CONSIDER ANTEROLATERAL ISCHEMIA; ST DEVIATION AND MODERATE T-WAVE ABNORMALITY, CONSIDER INFERIOR ISCHEMIA; CLINICAL CORRELATION 09/19/15; Electronically Signed On 07-24-2016 9:01:56 EST by Mariia Montes; Radiology Order: CT Chest Without Contrast Test: CT Chest Without Contrast REASON FOR EXAMINATION: Trauma; ; CLINICAL HISTORY: Trauma; TECHNIQUE: CT of the chest, abdomen and pelvis was performed without intravenous contrast by obtainin; g contiguous CT axial slices from level of the vocal cords to the proximal femoral diaphyses. Multipl; jonnathan reformats were obtained in the coronal and sagittal projections.; COMPARISON: None; FINDINGS :; LOWER NECK: Thyroid gland is unremarkable. No mass, suspicious cystic lesion, or enlarged adenopathy; identified.; AXILLA AND MEDIASTINUM: No suspicious mass or enlarged adenopathy.; HEART AND GREAT VESSELS: Status post median sternotomy and CABG with mild cardiomegaly and no pericar; dial effusion. Great vessels demonstrate no aneurysmal dilatation.; LUNGS/AIRWAYS/PLEURA: Mild dependent changes and minimal subpleural atelectasis toward the bases. No; acute infiltrate, effusion, mass, suspicious nodule, or pneumothorax.; LIVER: Normal in size with smooth contours.; BILIARY SYSTEM: Status post cholecystectomy with no intrahepatic biliary ductal dilatation or calcifi; ed biliary stones.; PANCREAS: The pancreas is normal in size, contour and density. No suspicious cystic lesion or ductal; dilatation.; SPLEEN: Normal in size with no suspicious cystic lesion.; ADRENALS: The adrenal glands are unremarkable.; KIDNEYS/URETERS: The kidneys are normal in size. No calcified renal or ureteral calculi are seen. No; suspicious cystic lesion or hydronephrosis. The ureters are not dilated.; URINARY BLADDER: The urinary bladder is unremarkable without calcified stone, wall thickening or dive; rticula seen.; PROSTATE/SEMINAL VESICLES: Prostatomegaly measuring 5.4 x 5.5 cm. Seminal vesicles unremarkable.; AORTA AND ILIAC ARTERIES: No aneurysmal dilatation of the aorta or iliac arteries is seen.; LYMPH NODES: No enlarged adenopathy.; GASTROINTESTINAL: The bowel is normal in caliber. No foci of small or large bowel wall thickening are; seen.; PERITONEUM: No abdominal or pelvic ascites is seen. No peritoneal mass is seen. Stranding and thicken; ing of bilateral pararenal fascia which is nonspecific although more likely age-related.; ABDOMINAL/PELVIC WALL: No hernia is identified.; OSSEOUS STRUCTURES/SOFT TISSUES: No suspicious osseous lesion, acute fracture, or soft tissue abnorma; lity. Multilevel degenerative spurring of the spine with mild degenerative disc changes.; IMPRESSION :; ; 1. No evidence of an acute thoracic or abdominal pelvic visceral injury or fracture.; 2. Moderate prostatomegaly.; ; Radiology Order: CT ABD & PELVIS: No Contrast Test: CT ABD & PELVIS: No Contrast REASON FOR EXAMINATION: Trauma; ; CLINICAL HISTORY: Trauma; TECHNIQUE: CT of the chest, abdomen and pelvis was performed without intravenous contrast by obtainin; g contiguous CT axial slices from level of the vocal cords to the proximal femoral diaphyses. Multipl; jonnathan reformats were obtained in the coronal and sagittal projections.; COMPARISON: None; FINDINGS :; LOWER NECK: Thyroid gland is unremarkable. No mass, suspicious cystic lesion, or enlarged adenopathy; identified.; AXILLA AND MEDIASTINUM: No suspicious mass or enlarged adenopathy.; HEART AND GREAT VESSELS: Status post median sternotomy and CABG with mild cardiomegaly and no pericar; dial effusion. Great vessels demonstrate no aneurysmal dilatation.; LUNGS/AIRWAYS/PLEURA: Mild dependent changes and minimal subpleural atelectasis toward the bases. No; acute infiltrate, effusion, mass, suspicious nodule, or pneumothorax.; LIVER: Normal in size with smooth contours.; BILIARY SYSTEM: Status post cholecystectomy with no intrahepatic biliary ductal dilatation or calcifi; ed biliary stones.; PANCREAS: The pancreas is normal in size, contour and density. No suspicious cystic lesion or ductal; dilatation.; SPLEEN: Normal in size with no suspicious cystic lesion.; ADRENALS: The adrenal glands are unremarkable.; KIDNEYS/URETERS: The kidneys are normal in size. No calcified renal or ureteral calculi are seen. No; suspicious cystic lesion or hydronephrosis. The ureters are not dilated.; URINARY BLADDER: The urinary bladder is unremarkable without calcified stone, wall thickening or dive; rticula seen.; PROSTATE/SEMINAL VESICLES: Prostatomegaly measuring 5.4 x 5.5 cm. Seminal vesicles unremarkable.; AORTA AND ILIAC ARTERIES: No aneurysmal dilatation of the aorta or iliac arteries is seen.; LYMPH NODES: No enlarged adenopathy.; GASTROINTESTINAL: The bowel is normal in caliber. No foci of small or large bowel wall thickening are; seen.; PERITONEUM: No abdominal or pelvic ascites is seen. No peritoneal mass is seen. Stranding and thicken; ing of bilateral pararenal fascia which is nonspecific although more likely age-related.; ABDOMINAL/PELVIC WALL: No hernia is identified.; OSSEOUS STRUCTURES/SOFT TISSUES: No suspicious osseous lesion, acute fracture, or soft tissue abnorma; lity. Multilevel degenerative spurring of the spine with mild degenerative disc changes.; IMPRESSION :; ; 1. No evidence of an acute thoracic or abdominal pelvic visceral injury or fracture.; 2. Moderate prostatomegaly.; ; Outcome: 22:38 ER care complete, transfer ordered by Provider. [id number] 22:42 Discharge Assessment: Patient awake, alert and oriented x 3. No cognitive and/or tm5 functional deficits noted. Patient verbalized understanding of disposition instructions. patient administered narcotics - no. The following High Risk Discharge criteria are identified: None. Transferred to [facility]. Transfer form completed. x-rays sent w/ patient. Condition: stable. CT Study completed. Property given to family member, Lien. 22:49 Transferred by EMS ground [facility] report to accompanying personnel tm5 Rib Bender Yosef Silva & Boris Triplett. 22:53 Patient left the ED. sls1 Signatures: Dispatcher [employer] EDMS Lali Cruz, Reg Reg gb Leelee Meadows Kristopher, DRYWALL FINISHER DRYWALL FINISHER [id number] Shena Villagomez, DO DO mm11 Carole Jones RN RN sls1 Leora Mehta,RN RN Breonna Rizo, Branch Chief Unit Leah Mcgrath,RN RN tm5 Corrections: (The following items were deleted from the chart) 20:11 20:07 Presenting complaint: EMS states: pt had unwitnessed fall from unknown amount of sls1 stairs, positive loc, per EMS pt altered on arrival, on back board, c/o shoulder, back and stomach pain, large laceration to head with possible depression, oxygen per ems, 18 gauge to right forearm sls1 Chart Complete MTDD
== END 2016-07-22 22:53 | disposition short-term general hospital (02) ==
LOC: M ED 20:03
DX: S02.91XB Unspecified fracture of skull, initial encounter for open fracture (principal); S06.0X1A Concussion with loss of consciousness of 30 minutes or less, initial encounter; W10.9XXA Fall (on) (from) unspecified stairs and steps, initial encounter; Y92.019 Unspecified place in single-family (private) house as the place of occurrence of the external cause; Y93.01 Activity, walking, marching and hiking; Y99.8 Other external cause status; R79.89 Other specified abnormal findings of blood chemistry; F41.9 Anxiety disorder, unspecified; E11.9 Type 2 diabetes mellitus without complications; I10 Essential (primary) hypertension; I25.2 Old myocardial infarction; E78.00 Pure hypercholesterolemia, unspecified; Z95.0 Presence of cardiac pacemaker; Z95.5 Presence of coronary angioplasty implant and graft; Z79.84 Long term (current) use of oral hypoglycemic drugs; Z79.01 Long term (current) use of anticoagulants; Z79.82 Long term (current) use of aspirin; Z79.899 Other long term (current) drug therapy
CPT/HCPCS: 36415; 70450; 71250; 72125; 74176; 80048; 80076; 81001; 82550; 82553; 83690; 84484; 85025; 85610; 85730; 86850; 86900; 86901; 90715; 93005; 93041; 96361; 96365; 96372; 99285; J0692

== ENCOUNTER → 2016-07-27 | Outpatient (CLI) | payer OTHER ==
--- NOTE | 2016-07-27 15:43 | REP ---
CT HEAD WITHOUT CONTRAST: HISTORY: Fall. COMPARISON: 07/22/2016 Areas of decreased attentuation are present in the periventricular white matter. This represents small vessel ischemic disease. There is no intraparenchymal hemorrhage, mass or midline shift. The ventricular system and cortical sulci are dilated consistent with moderate volume loss. There is no extracerebral collection. There is no fracture. Minimal mucosal thickening is present in the right maxillary sinus. Increased density is present in the external auditory canals likely representing cerumen. IMPRESSION: 1. Small vessel ischemic disease. 2. Moderate volume loss. Signed by Davon Paula MD 07/27/2016 03:44 P
== END ==
LOC: M RAD 14:43
PROVIDERS: ATTEND Internal Medicine
DX: S09.90XA Unspecified injury of head, initial encounter (principal); I67.82 Cerebral ischemia; X58.XXXA Exposure to other specified factors, initial encounter; Y92.89 Other specified places as the place of occurrence of the external cause; Y93.89 Activity, other specified; Y99.8 Other external cause status; J06.9 Acute upper respiratory infection, unspecified

== ENCOUNTER → 2016-07-27 | Outpatient (REF) | payer OTHER ==
[2016-07-27 12:09] LABS: BASO % 0.6 % (0.0-1.0); EOS # 0.3 K/mm3 (0.0-0.50); EOS % 4.4 % (0.0-3.0); LARGE UNSTAINED CELL # 0.3 K/mm3 (0.0-0.4); LARGE UNSTAINED CELL % 4.7 % (0.0-4.0); LYMPH # 1.6 K/mm3 (1.5-4.5); LYMPH % 17.2 % (24.0-44.0); MEAN CORPUSCULAR HEMOGLOBIN 27.6 pg (27.0-33.0); MEAN CORPUSCULAR HGB CONC 31.9 g/dl (32.0-36.5); MEAN CORPUSCULAR VOLUME 86.3 fl (80.0-96.0); MONO # 0.6 K/mm3 (0.0-0.8); MONO % 8.9 % (0.0-5.0); NEUTROPHILS # 4.6 K/mm3 (1.8-7.7); NEUTROPHILS % 64.2 % (36.0-66.0); PLATELET COUNT, AUTOMATED 192 k/mm3 (150-450); RED CELL DISTRIBUTION WIDTH 16.3 % (11.5-14.5); WHITE BLOOD COUNT 7.2 K/mm3 (4.0-10.0)
[2016-07-27 12:28] LABS: ALBUMIN 2.7 GM/DL (3.2-5.2); CALCIUM LEVEL 8.7 MG/DL (8.8-10.2); CREATININE FOR GFR 1.44 MG/DL (0.70-1.30); GLOMERULAR FILTRATION RATE 52.3 (>49); PHOSPHORUS LEVEL 2.2 MG/DL (2.5-4.9); POTASSIUM SERUM 4.6 MEQ/L (3.5-5.1)
== END ==
LOC: M LAB REF 11:59
DX: J06.9 Acute upper respiratory infection, unspecified (principal)

== ENCOUNTER → 2016-07-29 | Outpatient (CLI) | payer OTHER ==
[2016-07-29 13:03] LABS: INR 1.22
== END ==
LOC: M WUC 09:34
PROVIDERS: ATTEND Physician Assistant
DX: I48.91 Unspecified atrial fibrillation (principal); Z51.81 Encounter for therapeutic drug level monitoring; Z79.01 Long term (current) use of anticoagulants
CPT/HCPCS: 36415; 85610; G0463

== ENCOUNTER → 2016-08-11 | Outpatient (CLI) | payer OTHER ==
[2016-08-11 13:48] LABS: INR 2.3
== END ==
LOC: M WUC 10:27
PROVIDERS: ATTEND Nurse Practitioner Family
DX: I48.91 Unspecified atrial fibrillation (principal)

== ENCOUNTER → 2016-08-11 | Outpatient (CLI) | payer OTHER ==
[2016-08-11 13:59] LABS: ALBUMIN 3.2 GM/DL (3.2-5.2); CALCIUM LEVEL 8.6 MG/DL (8.8-10.2); CREATININE FOR GFR 1.47 MG/DL (0.70-1.30); PHOSPHORUS LEVEL 3.4 MG/DL (2.5-4.9); POTASSIUM SERUM 3.9 MEQ/L (3.5-5.1)
== END ==
LOC: M WUC 10:23
PROVIDERS: ATTEND Physician Assistant
DX: I50.32 Chronic diastolic (congestive) heart failure (principal); I48.91 Unspecified atrial fibrillation

== ENCOUNTER → 2016-08-18 | Outpatient (REF) | payer OTHER | LOC: M SMT 13:05 | PROVIDERS: ATTEND Urology | DX: R30.0 Dysuria (principal) | CPT/HCPCS: 51798; 81001; 87088; 87186; G0463 ==

== ENCOUNTER → 2016-09-09 | Outpatient (CLI) | payer OTHER ==
[2016-09-09 13:51] LABS: ALBUMIN 3.3 GM/DL (3.2-5.2); CREATININE FOR GFR 1.32 MG/DL (0.70-1.30); GLOMERULAR FILTRATION RATE 57.8 (>49); PHOSPHORUS LEVEL 3.3 MG/DL (2.5-4.9); POTASSIUM SERUM 3.9 MEQ/L (3.5-5.1)
== END ==
LOC: M WUC 10:24
PROVIDERS: ATTEND Physician Assistant
DX: I50.32 Chronic diastolic (congestive) heart failure (principal)

== ENCOUNTER → 2016-09-09 | Outpatient (CLI) | payer OTHER ==
[2016-09-09 13:36] LABS: INR 3.09
== END ==
LOC: M WUC 10:21
PROVIDERS: ATTEND Nurse Practitioner Family
DX: I48.91 Unspecified atrial fibrillation (principal)

== ENCOUNTER → 2016-09-15 | Outpatient (REF) | payer OTHER | LOC: M SMT 13:06 | PROVIDERS: ATTEND Nurse Practitioner Family | DX: N39.0 Urinary tract infection, site not specified (principal) ==

== ENCOUNTER → 2016-10-02 | Outpatient (REF) | payer OTHER | LOC: M LAB REF 13:23 | PROVIDERS: ATTEND Urology | DX: N39.0 Urinary tract infection, site not specified (principal) ==

== ENCOUNTER → 2016-11-03 | Outpatient (CLI) | payer OTHER | LOC: M WUC 08:53 | PROVIDERS: ATTEND Internal Medicine Cardiovascular Disease | DX: I48.91 Unspecified atrial fibrillation (principal) ==

== ENCOUNTER → 2016-12-03 | Outpatient (CLI) | payer OTHER ==
[2016-12-03 14:08] LABS: INR 1.38
== END ==
LOC: M WUC 09:27
PROVIDERS: ATTEND Nurse Practitioner Family
DX: I48.91 Unspecified atrial fibrillation (principal)

== ENCOUNTER → 2016-12-14 | Outpatient (CLI) | payer OTHER ==
[2016-12-14 12:45] LABS: ALBUMIN 3.5 GM/DL (3.2-5.2); CALCIUM LEVEL 9.4 MG/DL (8.8-10.2); CREATININE FOR GFR 1.64 MG/DL (0.70-1.30); MAGNESIUM LEVEL 1.6 MG/DL (1.8-2.4); PHOSPHORUS LEVEL 3.4 MG/DL (2.5-4.9); POTASSIUM SERUM 5.1 MEQ/L (3.5-5.1)
== END ==
LOC: M WUC 09:04
PROVIDERS: ATTEND Physician Assistant
DX: I50.32 Chronic diastolic (congestive) heart failure (principal); I48.2 Chronic atrial fibrillation

== ENCOUNTER → 2016-12-17 | Outpatient (CLI) | payer OTHER ==
[2016-12-17 16:56] LABS: INR 1.63
== END ==
LOC: M WUC 10:53
PROVIDERS: ATTEND Physician Assistant
DX: I48.91 Unspecified atrial fibrillation (principal)

== ENCOUNTER → 2016-12-30 | Outpatient (CLI) | payer OTHER ==
[2016-12-30 12:01] LABS: INR 1.9
== END ==
LOC: M WUC 09:41
PROVIDERS: ATTEND Internal Medicine Cardiovascular Disease
DX: I48.91 Unspecified atrial fibrillation (principal)

== ENCOUNTER → 2017-01-26 | Outpatient (CLI) | payer OTHER ==
[2017-01-27 14:15] LABS: PSA % FREE 30.7 % (.); PSA FREE 1.35 ng/mL; PSA TOTAL 4.4 ng/mL (0.0-4.0)
== END ==
LOC: M WUC 09:33
PROVIDERS: ATTEND Urology
DX: R97.20 Elevated prostate specific antigen [PSA] (principal)

== ENCOUNTER → 2017-02-17 | Outpatient (CLI) | payer OTHER ==
[2017-02-17 13:22] LABS: INR 1.62
== END ==
LOC: M WUC 09:16
PROVIDERS: ATTEND Nurse Practitioner Family
DX: I48.91 Unspecified atrial fibrillation (principal)

== ENCOUNTER → 2017-02-25 | Outpatient (REF) | payer OTHER | LOC: M LAB REF 11:55 | PROVIDERS: ATTEND Family Medicine | DX: I50.32 Chronic diastolic (congestive) heart failure (principal) ==

== ENCOUNTER → 2017-03-19 | Outpatient (CLI) | payer OTHER ==
[2017-03-19 19:46] LABS: ALBUMIN 3.4 GM/DL (3.2-5.2); CALCIUM LEVEL 8.8 MG/DL (8.8-10.2); CREATININE FOR GFR 1.63 MG/DL (0.70-1.30); GLOMERULAR FILTRATION RATE 45.3 (>49); PHOSPHORUS LEVEL 2.7 MG/DL (2.5-4.9); POTASSIUM SERUM 4.6 MEQ/L (3.5-5.1)
== END ==
LOC: M WUC 11:05
PROVIDERS: ATTEND Physician Assistant
DX: I50.32 Chronic diastolic (congestive) heart failure (principal)

== ENCOUNTER → 2017-04-29 | Outpatient (CLI) | payer OTHER ==
[2017-04-29 13:08] LABS: INR 2.2
== END ==
LOC: M WUC 10:16
PROVIDERS: ATTEND Nurse Practitioner Family
DX: I48.91 Unspecified atrial fibrillation (principal)

== ENCOUNTER → 2017-07-02 | Outpatient (CLI) | payer OTHER ==
[2017-07-02 11:56] LABS: INR 1.45
== END ==
LOC: M WUC 09:02
DX: I48.91 Unspecified atrial fibrillation (principal)
CPT/HCPCS: 85610

== ENCOUNTER → 2017-07-20 | Outpatient (CLI) | payer OTHER ==
[2017-07-20 13:58] LABS: INR 2.96; PROTHROMBIN TIME 32.1 SECONDS (12.4-14.5)
== END ==
LOC: M WUC 09:24
DX: I48.91 Unspecified atrial fibrillation (principal)
CPT/HCPCS: 85610

== ENCOUNTER → 2017-08-18 | Outpatient (CLI) | payer OTHER ==
[2017-08-18 13:18] LABS: INR 2.18; PROTHROMBIN TIME 25.1 SECONDS (12.4-14.5)
== END ==
LOC: M WUC 09:35
DX: I48.91 Unspecified atrial fibrillation (principal)
CPT/HCPCS: 85610

== ENCOUNTER → 2017-09-15 | Outpatient (CLI) | payer OTHER ==
[2017-09-15 10:57] LABS: INR 2.79; PROTHROMBIN TIME 30.6 SECONDS (12.4-14.5)
== END ==
LOC: M WUC 09:45
DX: I48.91 Unspecified atrial fibrillation (principal)
CPT/HCPCS: 85610

== ENCOUNTER → 2017-10-13 | Outpatient (CLI) | payer OTHER ==
[2017-10-13 12:25] LABS: INR 2.66; PROTHROMBIN TIME 29.5 SECONDS (12.4-14.5)
== END ==
LOC: M WUC 09:54
DX: I48.91 Unspecified atrial fibrillation (principal)
CPT/HCPCS: 85610

== ENCOUNTER → 2017-11-11 | Outpatient (CLI) | payer OTHER ==
[2017-11-11 17:28] LABS: INR 1.73; PROTHROMBIN TIME 20.8 SECONDS (12.4-14.5)
== END ==
LOC: M WUC 10:40
DX: I48.91 Unspecified atrial fibrillation (principal)
CPT/HCPCS: 85610

== ENCOUNTER → 2017-12-27 | Outpatient (CLI) | payer OTHER ==
[2017-12-27 13:21] LABS: INR 1.62; PROTHROMBIN TIME 19.5 SECONDS (12.1-14.4)
== END ==
LOC: M WUC 09:59
DX: I48.91 Unspecified atrial fibrillation (principal)
CPT/HCPCS: 85610

== ENCOUNTER → 2018-01-11 | Outpatient (CLI) | payer OTHER ==
[2018-01-11 11:18] LABS: ALBUMIN 3.4 GM/DL (3.2-5.2); ANION GAP 8 MEQ/L (8-16); BLOOD UREA NITROGEN 35 MG/DL (7-18); CALCIUM LEVEL 8.7 MG/DL (8.8-10.2); CARBON DIOXIDE LEVEL 27 MEQ/L (21-32); CHLORIDE LEVEL 110 MEQ/L (98-107); CREATININE FOR GFR 2.04 MG/DL (0.70-1.30); GLOMERULAR FILTRATION RATE 34.8 (>49); GLUCOSE, FASTING 126 MG/DL (70-100); MAGNESIUM LEVEL 1.8 MG/DL (1.8-2.4); PHOSPHORUS LEVEL 3.2 MG/DL (2.5-4.9); POTASSIUM SERUM 4.6 MEQ/L (3.5-5.1); SODIUM LEVEL 145 MEQ/L (136-145)
== END ==
LOC: M WUC 09:26
DX: I50.32 Chronic diastolic (congestive) heart failure (principal); I48.2 Chronic atrial fibrillation
CPT/HCPCS: 83735

== ENCOUNTER → 2018-01-20 | Outpatient (CLI) | payer OTHER ==
[2018-01-20 12:18] LABS: INR 2.49; PROTHROMBIN TIME 27.4 SECONDS (12.1-14.4)
== END ==
LOC: M WUC 09:04
DX: Z51.81 Encounter for therapeutic drug level monitoring (principal); Z79.01 Long term (current) use of anticoagulants; I48.91 Unspecified atrial fibrillation
CPT/HCPCS: 85610

== ENCOUNTER → 2018-02-24 | Outpatient (CLI) | payer OTHER ==
[2018-02-24 13:33] LABS: INR 3.02
== END ==
LOC: M WUC 09:17
DX: I48.91 Unspecified atrial fibrillation (principal); Z51.81 Encounter for therapeutic drug level monitoring; Z79.01 Long term (current) use of anticoagulants; R97.20 Elevated prostate specific antigen [PSA]
CPT/HCPCS: 84153

== ENCOUNTER → 2018-02-24 | Outpatient (CLI) | payer OTHER | LOC: M WUC 09:14 | DX: R97.20 Elevated prostate specific antigen [PSA] (principal) ==

== ENCOUNTER → 2018-03-25 | Outpatient (CLI) | payer OTHER ==
[2018-03-25 13:24] LABS: INR 2.25; PROTHROMBIN TIME 25.3 SECONDS (12.1-14.4)
== END ==
LOC: M WUC 09:12
DX: I48.91 Unspecified atrial fibrillation (principal)
CPT/HCPCS: 85610

== ENCOUNTER → 2018-04-11 | Outpatient (CLI) | payer OTHER ==
[2018-04-11 13:28] LABS: HEMATOCRIT 37.7 % (42.0-52.0); HEMOGLOBIN 11.6 g/dl (13.5-17.5); MEAN CORPUSCULAR HEMOGLOBIN 26.7 pg (27.0-33.0); MEAN CORPUSCULAR HGB CONC 30.8 g/dl (32.0-36.5); MEAN CORPUSCULAR VOLUME 86.7 fl (80.0-96.0); PLATELET COUNT, AUTOMATED 123 10^3/uL (150-450); RED BLOOD COUNT 4.35 10^6/uL (4.30-6.10); WHITE BLOOD COUNT 7.1 10^3/uL (4.0-10.0)
[2018-04-11 13:47] LABS: ANION GAP 9 MEQ/L (8-16); BLOOD UREA NITROGEN 37 MG/DL (7-18); CALCIUM LEVEL 8.8 MG/DL (8.8-10.2); CARBON DIOXIDE LEVEL 25 MEQ/L (21-32); CHLORIDE LEVEL 109 MEQ/L (98-107); CREATININE FOR GFR 1.83 MG/DL (0.70-1.30); GLOMERULAR FILTRATION RATE 39.5 (>49); GLUCOSE, FASTING 260 MG/DL (70-100); MAGNESIUM LEVEL 1.8 MG/DL (1.8-2.4); POTASSIUM SERUM 4.3 MEQ/L (3.5-5.1); SODIUM LEVEL 143 MEQ/L (136-145)
== END ==
LOC: M WUC 09:39
DX: I50.32 Chronic diastolic (congestive) heart failure (principal); I48.2 Chronic atrial fibrillation
CPT/HCPCS: 83735

== ENCOUNTER → 2018-04-25 | Outpatient (CLI) | payer OTHER ==
[2018-04-25 13:02] LABS: INR 4.19; PROTHROMBIN TIME 41.5 SECONDS (12.1-14.4)
== END ==
LOC: M WUC 09:42
DX: I48.91 Unspecified atrial fibrillation (principal)
CPT/HCPCS: 85610

== ENCOUNTER → 2018-05-05 | Outpatient (REF) | payer OTHER ==
[2018-05-05 13:13] LABS: INR 2.49; PROTHROMBIN TIME 27.4 SECONDS (12.1-14.4)
== END ==
LOC: M LAB REF 12:18
DX: I48.91 Unspecified atrial fibrillation (principal); Z51.81 Encounter for therapeutic drug level monitoring; Z79.01 Long term (current) use of anticoagulants
CPT/HCPCS: 85610

== ENCOUNTER → 2018-06-09 | Outpatient (CLI) | payer OTHER ==
[2018-06-09 13:02] LABS: INR 2.51; PROTHROMBIN TIME 27.6 SECONDS (12.1-14.4)
== END ==
LOC: M WUC 09:34
PROVIDERS: ATTEND Physician Assistant
DX: I48.91 Unspecified atrial fibrillation (principal); Z79.01 Long term (current) use of anticoagulants

== ENCOUNTER → 2018-07-26 | Outpatient (REF) | payer OTHER ==
[2018-07-28 13:09] LABS: IRON (FE) 50 UG/DL (65-175); PERCENT SATURATION 12.8 % (19.7-50.0); TOTAL IRON BINDING CAPACITY 391 UG/DL (250-450)
[2018-07-28 13:31] LABS: FOLATE > 24.0 NG/ML
[2018-08-01 10:41] LABS: VITAMIN B12 LEVEL 338 PG/ML (232-1245)
== END ==
LOC: M LAB REF 11:53
PROVIDERS: ATTEND Family Medicine
DX: I12.9 Hypertensive chronic kidney disease with stage 1 through stage 4 chronic kidney disease, or unspecified chronic kidney disease (principal); D64.9 Anemia, unspecified

== ENCOUNTER → 2018-08-01 | Outpatient (CLI) | payer OTHER ==
[2018-08-01 13:55] LABS: INR 2.18; PROTHROMBIN TIME 24.7 SECONDS (12.1-14.4)
[2018-08-01 14:07] LABS: CALCIUM LEVEL 8.9 MG/DL (8.8-10.2); CREATININE FOR GFR 1.77 MG/DL (0.70-1.30); GLOMERULAR FILTRATION RATE 40.9 (>49); POTASSIUM SERUM 4.5 MEQ/L (3.5-5.1)
== END ==
LOC: M WUC 10:22
PROVIDERS: ATTEND Physician Assistant
DX: I50.32 Chronic diastolic (congestive) heart failure (principal)

== ENCOUNTER → 2018-08-24 | Outpatient (REF) | payer OTHER ==
[2018-08-24 19:01] LABS: PERCENT SATURATION 13.5 % (19.7-50.0)
== END ==
LOC: M LAB REF 17:18
PROVIDERS: ATTEND Internal Medicine Nephrology
DX: D50.9 Iron deficiency anemia, unspecified (principal)

== ENCOUNTER → 2018-08-29 | Outpatient (CLI) | payer MEDICARE, OTHER ==
[2018-08-29 12:35] LABS: HEMATOCRIT 32.9 % (42.0-52.0); HEMOGLOBIN 10.1 g/dl (13.5-17.5); MEAN CORPUSCULAR HEMOGLOBIN 27.7 pg (27.0-33.0); MEAN CORPUSCULAR HGB CONC 30.7 g/dl (32.0-36.5); MEAN CORPUSCULAR VOLUME 90.1 fl (80.0-96.0); PLATELET COUNT, AUTOMATED 115 10^3/uL (150-450); RED BLOOD COUNT 3.65 10^6/uL (4.30-6.10); WHITE BLOOD COUNT 5.5 10^3/uL (4.0-10.0)
[2018-08-29 13:38] LABS: CALCIUM LEVEL 8.7 MG/DL (8.8-10.2); CREATININE FOR GFR 1.65 MG/DL (0.70-1.30); GLOMERULAR FILTRATION RATE 44.4 (>49); POTASSIUM SERUM 4.2 MEQ/L (3.5-5.1)
== END ==
LOC: M WUC 10:29
PROVIDERS: ATTEND Physician Assistant
DX: I49.5 Sick sinus syndrome (principal); I48.91 Unspecified atrial fibrillation; Z51.81 Encounter for therapeutic drug level monitoring; Z79.01 Long term (current) use of anticoagulants

== ENCOUNTER → 2018-08-29 | Outpatient (CLI) | payer MEDICARE ==
[2018-08-29 12:47] LABS: INR 2.44
== END ==
LOC: M WUC 10:35
PROVIDERS: ATTEND Physician Assistant
DX: I48.91 Unspecified atrial fibrillation (principal); Z51.81 Encounter for therapeutic drug level monitoring; Z79.01 Long term (current) use of anticoagulants

== ENCOUNTER 2018-09-06 10:42 | Day surgery (SDC) | payer MEDICARE ==
[~2018-09-06] VITALS: Ht 165.1 cm; Wt 121.6 kg
[~2018-09-06 10:42] MED LIST: ASPI81TA85 PO; COUM2.5T17 PO; COUM7.5T PO; EQL50TAB4 PO; FURO20TA2 PO; GLIP5TAB8 PO; LISI-542 PO; MAGN64TASA PO; METF-877 PO; METF500T13 PO; MULTCAP PO; NITR0.4S14 SL; PARO10TA3 PO; PIOG1TAB55 PO; SIMV80TA13 PO; TAMS1CAP17 PO; VITA1TAB23 PO
[2018-09-06] MEDS ORDERED: LIDOCAINE 2% INJ 100 MG/5 ML SDV (FOR ANES.) As Ordered ONE (11:03)
[2018-09-06] MEDS ORDERED: PROPOFOL 200 MG/20 ML VIAL As Ordered ONE ×2 (11:03→13:31)
[2018-09-06] MEDS ORDERED: MIDAZOLAM INJ 2 MG/2 ML VIAL (J2250) As Ordered ONE (11:04)
[2018-09-06] MEDS ORDERED: fentaNYL 100 MCG/2 ML INJECTION (J3010) As Ordered ONE (11:04)
[2018-09-06] MEDS ORDERED: ceFAZolin 1GM INJ (J0690 PER 500MG) As Ordered ONE (11:44)
[2018-09-06 11:56] LABS: INR 1.28; PROTHROMBIN TIME 16.1 SECONDS (12.1-14.4)
[2018-09-06] MEDS ORDERED: ceFAZolin SOD 1 GM in D5W MINI-BAG PLUS 50 ML IV ONE (12:00)
[2018-09-06] MEDS ORDERED: VANCOMYCIN 1000 MG/20 ML VIAL (J3370) As Ordered ONE (12:03)
[2018-09-06] MEDS ORDERED: BACITRACIN OINT 30GM As Ordered ONE (12:03)
[2018-09-06] MEDS ORDERED: LIDOCAINE 1% SDV INJ 30 ML VIAL As Ordered ONE (12:03)
[2018-09-06 15:00] VITALS: BP 140/74
[2018-09-06] MEDS ORDERED: PERCOCET 5MG/325MG TAB PO PRN (15:15)
[2018-09-06] MEDS ORDERED: LR 1,000 ML IV SCH (15:15)
[2018-09-06] MEDS ORDERED: ONDANSETRON 4MG/2ML VIAL (J2405) IV PRN (15:15)
[2018-09-06] MEDS ORDERED: METOCLOPRAMIDE INJ 10MG/2ML VIAL (J2765) IV PRN (15:15)
--- NOTE | 2018-09-06 15:36 | RO ---
DATE OF OPERATION: 09/06/2018 PREOPERATIVE DIAGNOSIS: Pacemaker battery depletion. POSTOPERATIVE DIAGNOSIS: Pacemaker battery depletion. PROCEDURE: Explantation of old dual-chamber pacemaker pulse generator and implantation of new dual-chamber pacemaker pulse generator. SURGEON: Pablo Slater MD PAPER REWINDER OPERATOR: None. ANESTHESIA: Lidocaine 1% local/monitored anesthetic care. FINDINGS: Pacemaker battery depletion. SPECIMENS: Old [employer] dual-chamber pacemaker pulse generator. ESTIMATED BLOOD LOSS: Less than 3 mL. No blood products replaced. No drains. No complications. PROCEDURE DESCRIPTION: The patient was prepped and draped over the left anterior chest. Lidocaine 1% was used for local anesthetic. An incision was made with a PEAK PlasmaBlade over the body of the existing pacemaker pulse generator a few centimeters below and parallel to the original pacemaker incision. The PEAK PlasmaBlade was used to get help free up adhesions attached to the pacemaker leads. The existing pacemaker pulse generator was then removed from the pocket. The atrial and ventricular leads were then unplugged from the pacemaker pulse generator after loosening the setscrews. The ventricular lead was tested in the operating room with the pulse analyzer and found to be satisfactory for a chronic lead. The terminal pins of the existing ventricular lead and atrial lead were plugged into their respective ports in the header of the new pacemaker pulse generator and each one was secured by tightening the setscrews. I then took a medium size TYRX antimicrobial envelope and cut it into four pieces, which were placed into the pacemaker pocket. The excess lead material was then coiled underneath the pacemaker pulse generator and placed along with the pacemaker pulse generator into the existing pacemaker pocket. The deep layer was closed using individual sutures consisting of #2-0 Vicryl. A few additional #2-0 Vicryl sutures and some #3-0 Vicryl sutures were used for individual sutures to help approximate the more superficial layer. The incision was then closed using falguni for the skin layer. The patient tolerated the procedure well without any immediate complications. The existing pacemaker pulse generator that was explanted was a [employer] Victory model 5816 with serial number [id number] originally implanted by Dr. Slater 01/03/2007. The new pacemaker pulse generator implanted was a [employer] MRI model number [id number] with serial number [id number], The existing right atrial lead was a [employer] model 1688T/52 with serial number [id number]. The existing right ventricular lead was a [employer] model 1688T/58 with serial number [id number]. Testing in the operating room with the pulse analyzer for the existing right ventricular lead shoed capture threshold of 1.3 volts at 0.5 ms with lead impedance of 380 ohms. The patient was patient pacemaker dependent and therefore R waves could not be measured successfully.
== END 2018-09-06 15:25 | disposition home or self-care (01) ==
LOC: M SDC 10:42
PROVIDERS: ATTEND Internal Medicine Cardiovascular Disease
DX: I48.0 Paroxysmal atrial fibrillation (principal); Z45.010 Encounter for checking and testing of cardiac pacemaker pulse generator [battery]; I25.2 Old myocardial infarction; E11.9 Type 2 diabetes mellitus without complications; I25.10 Atherosclerotic heart disease of native coronary artery without angina pectoris; G47.30 Sleep apnea, unspecified; Z79.01 Long term (current) use of anticoagulants; Z79.84 Long term (current) use of oral hypoglycemic drugs; I10 Essential (primary) hypertension; E78.5 Hyperlipidemia, unspecified; K21.9 Gastro-esophageal reflux disease without esophagitis; Z79.899 Other long term (current) drug therapy
CPT/HCPCS: 33228; 36415; 85610; C1785; J0690; J2250; J3010

== ENCOUNTER → 2018-09-26 | Outpatient (CLI) | payer MEDICARE ==
[~2018-09-26] MED LIST changes: -EQL50TAB4 PO; +ZINC1TAB2 PO
[2018-09-26 12:24] LABS: INR 2.08; PROTHROMBIN TIME 23.8 SECONDS (12.1-14.4)
== END ==
LOC: M WUC 10:16
PROVIDERS: ATTEND Physician Assistant
DX: I48.91 Unspecified atrial fibrillation (principal)

== ENCOUNTER → 2018-10-24 | Outpatient (CLI) | payer MEDICARE ==
[2018-10-24 10:20] LABS: INR 2.06; PROTHROMBIN TIME 23.6 SECONDS (12.1-14.4)
== END ==
LOC: M WUC 08:39
PROVIDERS: ATTEND Physician Assistant
DX: I48.91 Unspecified atrial fibrillation (principal)

== ENCOUNTER → 2018-11-23 | Outpatient (CLI) | payer MEDICARE ==
[2018-11-23 13:46] LABS: CALCIUM LEVEL 8.9 MG/DL (8.8-10.2); CREATININE FOR GFR 1.95 MG/DL (0.70-1.30); GLOMERULAR FILTRATION RATE 36.6 (>49); MAGNESIUM LEVEL 1.7 MG/DL (1.8-2.4); POTASSIUM SERUM 4.8 MEQ/L (3.5-5.1)
== END ==
LOC: M WUC 09:56
PROVIDERS: ATTEND Physician Assistant
DX: I50.32 Chronic diastolic (congestive) heart failure (principal); I48.2 Chronic atrial fibrillation

== ENCOUNTER → 2018-11-25 | Outpatient (CLI) | payer MEDICARE ==
[2018-11-25 12:56] LABS: INR 2.03; PROTHROMBIN TIME 23.3 SECONDS (12.1-14.4)
== END ==
LOC: M WUC 09:21
PROVIDERS: ATTEND Physician Assistant
DX: I48.91 Unspecified atrial fibrillation (principal)

== ENCOUNTER → 2018-12-26 | Outpatient (CLI) | payer MEDICARE ==
[2018-12-26 13:23] LABS: INR 2.34; PROTHROMBIN TIME 25.5 SECONDS (11.8-14.0)
== END ==
LOC: M WUC 09:39
PROVIDERS: ATTEND Physician Assistant
DX: I48.91 Unspecified atrial fibrillation (principal); Z79.01 Long term (current) use of anticoagulants

== ENCOUNTER → 2019-02-21 | Outpatient (CLI) | payer MEDICARE ==
[2019-02-21 14:00] LABS: CALCIUM LEVEL 9.2 MG/DL (8.8-10.2); CREATININE FOR GFR 2.18 MG/DL (0.70-1.30); GLOMERULAR FILTRATION RATE 32.2 (>49); POTASSIUM SERUM 4.1 MEQ/L (3.5-5.1)
== END ==
LOC: M WUC 09:23
PROVIDERS: ATTEND Physician Assistant
DX: I50.32 Chronic diastolic (congestive) heart failure (principal); I48.2 Chronic atrial fibrillation

== ENCOUNTER → 2019-02-21 | Outpatient (CLI) | payer MEDICARE ==
[2019-02-23 14:07] LABS: PSA % FREE 43.3 % (.); PSA FREE 2.64 ng/mL; PSA TOTAL 6.1 ng/mL (0.0-4.0)
== END ==
LOC: M WUC 09:26
PROVIDERS: ATTEND Urology
DX: R97.20 Elevated prostate specific antigen [PSA] (principal); I50.32 Chronic diastolic (congestive) heart failure; I48.2 Chronic atrial fibrillation

== ENCOUNTER → 2019-03-06 | Outpatient (CLI) | payer MEDICARE ==
[2019-03-06 13:04] LABS: INR 2.27; PROTHROMBIN TIME 24.8 SECONDS (11.8-14.0)
== END ==
LOC: M WUC 09:22
PROVIDERS: ATTEND Physician Assistant
DX: I48.91 Unspecified atrial fibrillation (principal)

== ENCOUNTER → 2019-04-03 | Outpatient (CLI) | payer MEDICARE ==
[2019-04-03 13:38] LABS: INR 2.04; PROTHROMBIN TIME 22.8 SECONDS (11.8-14.0)
== END ==
LOC: M WUC 09:31
PROVIDERS: ATTEND Physician Assistant
DX: I48.91 Unspecified atrial fibrillation (principal)

== ENCOUNTER → 2019-05-01 | Outpatient (CLI) | payer MEDICARE ==
[2019-05-01 12:44] LABS: HEMOGLOBIN 12.3 g/dl (13.5-17.5); MEAN CORPUSCULAR HEMOGLOBIN 28.1 pg (27.0-33.0); MEAN CORPUSCULAR VOLUME 93.6 fl (80.0-96.0); PLATELET COUNT, AUTOMATED 109 10^3/uL (150-450); RED BLOOD COUNT 4.38 10^6/uL (4.30-6.10)
[2019-05-01 12:56] LABS: INR 2.44; PROTHROMBIN TIME 26.3 SECONDS (11.8-14.0)
[2019-05-01 12:59] LABS: CALCIUM LEVEL 8.5 MG/DL (8.8-10.2); CREATININE FOR GFR 2.05 MG/DL (0.70-1.30); GLOMERULAR FILTRATION RATE 34.5 (>49); MAGNESIUM LEVEL 1.9 MG/DL (1.8-2.4); POTASSIUM SERUM 4.5 MEQ/L (3.5-5.1)
== END ==
LOC: M WUC 09:18
PROVIDERS: ATTEND Physician Assistant
DX: I50.32 Chronic diastolic (congestive) heart failure (principal); I48.20 Chronic atrial fibrillation, unspecified; I48.91 Unspecified atrial fibrillation

== ENCOUNTER → 2019-05-29 | Outpatient (CLI) | payer MEDICARE ==
[2019-05-29 12:56] LABS: INR 2.02; PROTHROMBIN TIME 22.6 SECONDS (11.8-14.0)
== END ==
LOC: M WUC 09:40
PROVIDERS: ATTEND Physician Assistant
DX: I48.91 Unspecified atrial fibrillation (principal)

== ENCOUNTER → 2019-06-29 | Outpatient (CLI) | payer MEDICARE ==
[2019-06-29 13:23] LABS: INR 2.44; PROTHROMBIN TIME 26.3 SECONDS (11.8-14.0)
[2019-06-29 13:37] LABS: CALCIUM LEVEL 9.1 MG/DL (8.8-10.2); CREATININE FOR GFR 1.95 MG/DL (0.70-1.30); GLOMERULAR FILTRATION RATE 36.5 (>49); MAGNESIUM LEVEL 1.9 MG/DL (1.8-2.4); POTASSIUM SERUM 4.5 MEQ/L (3.5-5.1)
== END ==
LOC: M WUC 10:54
PROVIDERS: ATTEND Physician Assistant
DX: I48.91 Unspecified atrial fibrillation (principal); I50.32 Chronic diastolic (congestive) heart failure; I48.20 Chronic atrial fibrillation, unspecified

== ENCOUNTER → 2019-07-27 | Outpatient (CLI) | payer MEDICARE ==
[2019-07-27 11:06] LABS: INR 2.43; PROTHROMBIN TIME 26.3 SECONDS (11.8-14.0)
== END ==
LOC: M WUC 09:32
PROVIDERS: ATTEND Physician Assistant
DX: I48.91 Unspecified atrial fibrillation (principal); Z79.01 Long term (current) use of anticoagulants

== ENCOUNTER → 2019-08-25 | Outpatient (CLI) | payer MEDICARE ==
[2019-08-25 13:48] LABS: INR 4.14; PROTHROMBIN TIME 40.2 SECONDS (11.8-14.0)
== END ==
LOC: M WUC 10:06
PROVIDERS: ATTEND Physician Assistant
DX: I48.91 Unspecified atrial fibrillation (principal)

== ENCOUNTER → 2019-08-25 | Outpatient (CLI) | payer MEDICARE ==
[2019-08-25 13:21] LABS: BASO # 0.1 10^3/uL (0.0-0.2); BASO % 1.1 % (0.0-1.0); EOS # 0.2 10^3/uL (0.0-0.5); EOS % 3.1 % (0.0-3.0); HEMATOCRIT 45.4 % (42.0-52.0); HEMOGLOBIN 14.3 g/dl (13.5-17.5); LYMPH # 1.4 10^3/uL (1.5-5.0); LYMPH % 21.7 % (24.0-44.0); MEAN CORPUSCULAR HEMOGLOBIN 28.8 pg (27.0-33.0); MEAN CORPUSCULAR HGB CONC 31.5 g/dl (32.0-36.5); MEAN CORPUSCULAR VOLUME 91.3 fl (80.0-96.0); MONO # 0.7 10^3/uL (0.0-0.8); MONO % 10.2 % (0.0-5.0); NEUTROPHILS # 4.1 10^3/uL (1.5-8.5); NEUTROPHILS % 63.6 % (36.0-66.0); PLATELET COUNT, AUTOMATED 133 10^3/uL (150-450); RED BLOOD COUNT 4.97 10^6/uL (4.30-6.10); WHITE BLOOD COUNT 6.5 10^3/uL (4.0-10.0)
[2019-08-25 13:25] LABS: APPEARANCE, URINE CLEAR (CLEAR); BACTERIA, URINE AUTO NEGATIVE (NEGATIVE); BILIRUBIN, URINE AUTO NEGATIVE (NEGATIVE); BLOOD, URINE BLOOD NEGATIVE (NEGATIVE); COLOR, URINE YELLOW (YELLOW); GLUCOSE, URINE (UA) AUTO 3+ mg/dL (NEGATIVE); KETONE, URINE AUTO NEGATIVE (NEGATIVE); LEUKOCYTE ESTERASE, URINE AUTO NEGATIVE (NEGATIVE); MUCUS, URINE SMALL (NEGATIVE); NITRITE, URINE AUTO NEGATIVE (NEGATIVE); PROTEIN, URINE AUTO 1+ mg/dL (NEGATIVE); RBC, URINE AUTO 3 /HPF (0-3); SPECIFIC GRAVITY URINE AUTO 1.009 (1.002-1.035); SQUAMOUS EPITHELIAL CELL UR AU 0 /HPF (0-6); UROBILINOGEN, URINE AUTO 0.2 mg/dL (0.0-2.0); WBC, URINE AUTO 1 /HPF (0-3)
[2019-08-25 13:50] LABS: ALBUMIN 3.5 GM/DL (3.2-5.2); CALCIUM LEVEL 8.4 MG/DL (8.8-10.2); CREATININE FOR GFR 1.98 MG/DL (0.70-1.30); GLOMERULAR FILTRATION RATE 35.9 (>49); MAGNESIUM LEVEL 2.1 MG/DL (1.8-2.4); PHOSPHORUS LEVEL 2.7 MG/DL (2.5-4.9); POTASSIUM SERUM 4.7 MEQ/L (3.5-5.1)
[2019-08-25 13:56] LABS: PTH INTACT 152.1 PG/ML (18.5-88.0)
== END ==
LOC: M WUC 10:03
PROVIDERS: ATTEND Nurse Practitioner Family
DX: N18.3 Chronic kidney disease, stage 3 (moderate) (principal); D63.1 Anemia in chronic kidney disease; N25.81 Secondary hyperparathyroidism of renal origin; M1A.30X0 Chronic gout due to renal impairment, unspecified site, without tophus (tophi); E83.42 Hypomagnesemia; I48.91 Unspecified atrial fibrillation

== ENCOUNTER → 2019-09-01 | Outpatient (CLI) | payer MEDICARE ==
[2019-09-01 13:13] LABS: INR 2.82; PROTHROMBIN TIME 29.5 SECONDS (11.8-14.0)
== END ==
LOC: M WUC 09:36
PROVIDERS: ATTEND Internal Medicine Cardiovascular Disease
DX: I48.91 Unspecified atrial fibrillation (principal)

== ENCOUNTER → 2019-10-03 | Outpatient (CLI) | payer MEDICARE ==
[2019-10-03 13:21] LABS: INR 2.97; PROTHROMBIN TIME 30.8 SECONDS (11.8-14.0)
== END ==
LOC: M WUC 09:03
PROVIDERS: ATTEND Physician Assistant
DX: I48.91 Unspecified atrial fibrillation (principal)

== ENCOUNTER → 2019-11-02 | Outpatient (CLI) | payer MEDICARE ==
[2019-11-02 10:57] LABS: INR 2.55; PROTHROMBIN TIME 27.3 SECONDS (11.8-14.0)
== END ==
LOC: M WUC 08:48
PROVIDERS: ATTEND Physician Assistant
DX: I48.91 Unspecified atrial fibrillation (principal)

== ENCOUNTER → 2019-12-06 | Outpatient (CLI) | payer MEDICARE ==
[~2019-12-06] MED LIST changes: -ASPI81TA85 PO; +ASPI81TA86 PO; -COUM7.5T PO; +COUM7.5T6 PO; -LISI-542 PO; +LISI-898 PO; -VITA1TAB23 PO; +VITA250T26 PO
[2019-12-06 14:32] LABS: INR 2.24; PROTHROMBIN TIME 24.6 SECONDS (11.8-14.0)
== END ==
LOC: M WUC 09:11
PROVIDERS: ATTEND Physician Assistant
DX: I48.91 Unspecified atrial fibrillation (principal)

== ENCOUNTER → 2020-01-04 | Outpatient (CLI) | payer MEDICARE ==
[~2020-01-04] MED LIST changes: +LISI-542 PO; -LISI-898 PO
[2020-01-04 09:31] LABS: INR 1.63; PROTHROMBIN TIME 19.1 SECONDS (11.8-14.0)
== END ==
LOC: M WUC 08:37
PROVIDERS: ATTEND Physician Assistant
DX: I48.91 Unspecified atrial fibrillation (principal)

== ENCOUNTER → 2020-01-18 | Outpatient (REF) | payer MEDICARE ==
[2020-02-13 12:25] LABS: INR 1.16; PROTHROMBIN TIME 15.1 SECONDS (11.8-14.0)
== END ==
LOC: M WUC 12:42
PROVIDERS: ATTEND Physician Assistant
DX: I48.91 Unspecified atrial fibrillation (principal)

== ENCOUNTER → 2020-02-06 | Outpatient (REF) | payer MEDICARE ==
[2020-03-26 11:07] LABS: INR 2.38; PROTHROMBIN TIME 26.5 SECONDS (12.5-14.3)
== END ==
LOC: M WUC 12:44
PROVIDERS: ATTEND Physician Assistant
DX: I48.91 Unspecified atrial fibrillation (principal)

== ENCOUNTER → 2020-02-13 | Outpatient (CLI) | payer MEDICARE ==
[2020-02-15 08:12] LABS: PSA % FREE 41.7 % (.); PSA FREE 2.75 ng/mL; PSA TOTAL 6.6 ng/mL (0.0-4.0)
== END ==
LOC: M WUC 09:24
PROVIDERS: ATTEND Urology
DX: R97.20 Elevated prostate specific antigen [PSA] (principal)

== ENCOUNTER → 2020-03-11 | Outpatient (CLI) | payer MEDICARE ==
[2020-03-13 00:07] LABS: PSA % FREE 52.9 % (.); PSA FREE 2.54 ng/mL; PSA TOTAL 4.8 ng/mL (0.0-4.0)
== END ==
LOC: M WUC 09:39
PROVIDERS: ATTEND Urology
DX: R97.20 Elevated prostate specific antigen [PSA] (principal); I48.91 Unspecified atrial fibrillation

== ENCOUNTER → 2020-03-11 | Outpatient (CLI) | payer MEDICARE ==
[2020-03-11 13:31] LABS: INR 2.05; PROTHROMBIN TIME 23.6 SECONDS (12.5-14.3)
== END ==
LOC: M WUC 09:43
PROVIDERS: ATTEND Physician Assistant
DX: I48.91 Unspecified atrial fibrillation (principal)

== ENCOUNTER → 2020-04-25 | Outpatient (CLI) | payer MEDICARE ==
[2020-04-25 13:24] LABS: INR 2.65; PROTHROMBIN TIME 28.9 SECONDS (12.5-14.3)
== END ==
LOC: M WUC 09:54
PROVIDERS: ATTEND Physician Assistant
DX: I48.91 Unspecified atrial fibrillation (principal)

== ENCOUNTER → 2020-05-27 | Outpatient (CLI) | payer MEDICARE ==
[2020-05-27 16:16] LABS: INR 1.95; PROTHROMBIN TIME 22.7 SECONDS (12.5-14.3)
== END ==
LOC: M WUC 11:26
PROVIDERS: ATTEND Physician Assistant
DX: I48.91 Unspecified atrial fibrillation (principal)

== ENCOUNTER → 2020-06-25 | Outpatient (CLI) | payer MEDICARE ==
[2020-06-25 13:23] LABS: INR 2.28; PROTHROMBIN TIME 25.6 SECONDS (12.5-14.3)
== END ==
LOC: M WUC 09:07
PROVIDERS: ATTEND Physician Assistant
DX: I48.91 Unspecified atrial fibrillation (principal); Z79.01 Long term (current) use of anticoagulants

== ENCOUNTER → 2020-07-25 | Outpatient (CLI) | payer MEDICARE ==
[2020-07-25 13:30] LABS: INR 1.55; PROTHROMBIN TIME 18.9 SECONDS (12.5-14.3)
== END ==
LOC: M WUC 09:16
PROVIDERS: ATTEND Physician Assistant
DX: I48.91 Unspecified atrial fibrillation (principal)

== ENCOUNTER → 2020-08-08 | Outpatient (CLI) | payer MEDICARE ==
[~2020-08-08] MED LIST changes: -LISI-542 PO; +LISI-898 PO
[2020-08-08 13:01] LABS: INR 2.34; PROTHROMBIN TIME 26.2 SECONDS (12.5-14.3)
== END ==
LOC: M WUC 09:59
PROVIDERS: ATTEND Physician Assistant
DX: I48.91 Unspecified atrial fibrillation (principal)

== ENCOUNTER → 2020-08-29 | Outpatient (CLI) | payer MEDICARE ==
[~2020-08-29] MED LIST changes: +ECOT81TA5 PO; +FARX1TAB5 PO; +MULT-40 PO; +OZEM2INJ SC; +WARF-21 PO; +WARF-23 PO; +ZOCO80TA PO
[2020-08-29 12:33] LABS: INR 2.3; PROTHROMBIN TIME 25.8 SECONDS (12.5-14.3)
== END ==
LOC: M WUC 10:05
PROVIDERS: ATTEND Physician Assistant
DX: I48.91 Unspecified atrial fibrillation (principal)

== ENCOUNTER → 2020-09-21 | Outpatient (CLI) | payer MEDICARE ==
[~2020-09-21] MED LIST changes: +SM M250T PO
== END ==
LOC: M LABSMTC 09:53
PROVIDERS: ATTEND Anesthesiology
DX: Z20.822 Contact with and (suspected) exposure to COVID-19 (principal)

== ENCOUNTER 2020-09-26 11:37 | Day surgery (SDC) | payer MEDICARE ==
[~2020-09-26] VITALS: Ht 165.1 cm; Wt 99.3 kg
[~2020-09-26 11:37] MED LIST changes: +LIDOCAINE 2% 100MG/5ML SDV (FOR ANES.) As Ordered ONE; +NS 1,000 ML IV ONE; +propofoL 200 MG/20 ML VIAL As Ordered ONE
--- NOTE | 2020-09-26 12:56 | ROOR ---
Patient Name: Ze Chu Procedure Date: 09/26/2020 12:21 PM Date of : 1950 Age: 70 Room: [facility] Gender: Male Note Status: Finalized Procedure: Colonoscopy Indications: Positive Cologuard test Providers: Arash Mccarthy Jr, MD Referring MD: Demario Suarez MD Requesting Provider: Medicines: Propofol per Anesthesia Complications: No immediate complications. Procedure: Pre-Anesthesia Assessment: - Prior to the procedure, a History and Physical was performed, and patient medications and allergies were reviewed. The patient is competent. The risks and benefits of the procedure and the sedation options and risks were discussed with the patient. All questions were answered and informed consent was obtained. Patient identification and proposed procedure were verified by the physician and the nurse in the pre-procedure area and in the procedure room. Mental Status Examination: alert and oriented. Airway Examination: normal oropharyngeal airway and neck mobility. Respiratory Examination: clear to auscultation. CV Examination: normal. ASA Grade Assessment: II - A patient with mild systemic disease. After reviewing the risks and benefits, the patient was deemed in satisfactory condition to undergo the procedure. The anesthesia plan was to use moderate sedation / analgesia (conscious sedation). Immediately prior to administration of medications, the patient was re-assessed for adequacy to receive sedatives. The heart rate, respiratory rate, oxygen saturations, blood pressure, adequacy of pulmonary ventilation, and response to care were monitored throughout the procedure. The physical status of the patient was re-assessed after the procedure. The Colonoscope was introduced through the anus and advanced to the cecum, identified by appendiceal orifice and ileocecal valve. The colonoscopy was performed without difficulty. The patient tolerated the procedure well. The quality of the bowel preparation was fair. Findings: The recto-sigmoid colon, descending colon, transverse colon, cecum, appendiceal orifice and ileocecal valve appeared normal. Two sessile polyps were found in the rectum and ascending colon. The polyps were small in size. These polyps were removed with a hot snare. Resection was complete, but the polyp tissue was only partially retrieved. Non-bleeding internal hemorrhoids were found during endoscopy. The hemorrhoids were Grade II (internal hemorrhoids that prolapse but reduce spontaneously). Impression: - Preparation of the colon was fair. - The recto-sigmoid colon, descending colon, transverse colon, cecum, appendiceal orifice and ileocecal valve are normal. - Two small polyps in the rectum and in the ascending colon, removed with a hot snare. Complete resection. Partial retrieval. - Non-bleeding internal hemorrhoids. Recommendation: - Discharge patient to home (ambulatory). - Repeat colonoscopy in 5-10 years for surveillance based on pathology results. Procedure Code(s): --- Professional --- 67449, Colonoscopy, flexible; with removal of tumor(s), polyp(s), or other lesion(s) by snare technique Diagnosis Code(s): --- Professional --- K64.1, Second degree hemorrhoids K62.1, Rectal polyp K63.5, Polyp of colon R19.5, Other fecal abnormalities CPT copyright 2019 [employer]. All rights reserved. The codes documented in this report are preliminary and upon remote inpatient coder review may be revised to meet current compliance requirements. Arash Mccarthy MD Arash Mccarthy Jr, MD 09/26/2020 12:56:14 PM Electronically signed by Arash Mccarthy Jr, MD Number of Addenda: 0 Note Initiated On: 09/26/2020 12:21 PM Estimated Blood Loss: Estimated blood loss: none.
[2020-09-26 13:15] VITALS: BP 117/75
== END 2020-09-26 13:27 | disposition home or self-care (01) ==
LOC: M OPP 11:37
PROVIDERS: ATTEND Surgery
DX: R19.5 Other fecal abnormalities (principal); D12.6 Benign neoplasm of colon, unspecified; K64.1 Second degree hemorrhoids; I25.10 Atherosclerotic heart disease of native coronary artery without angina pectoris; I25.2 Old myocardial infarction; I10 Essential (primary) hypertension; E78.5 Hyperlipidemia, unspecified; E11.9 Type 2 diabetes mellitus without complications; K21.9 Gastro-esophageal reflux disease without esophagitis; G47.30 Sleep apnea, unspecified; I48.91 Unspecified atrial fibrillation; Z95.0 Presence of cardiac pacemaker; Z95.5 Presence of coronary angioplasty implant and graft; Z79.01 Long term (current) use of anticoagulants; Z79.82 Long term (current) use of aspirin; Z79.84 Long term (current) use of oral hypoglycemic drugs; Z79.899 Other long term (current) drug therapy

== ENCOUNTER → 2020-10-03 | Outpatient (CLI) | payer MEDICARE ==
[~2020-10-03] MED LIST changes: -LIDOCAINE 2% 100MG/5ML SDV (FOR ANES.) As Ordered ONE; -NS 1,000 ML IV ONE; -propofoL 200 MG/20 ML VIAL As Ordered ONE
[2020-10-03 14:42] LABS: INR 1.6; PROTHROMBIN TIME 19.4 SECONDS (12.5-14.3)
== END ==
LOC: M WUC 08:55
PROVIDERS: ATTEND Physician Assistant
DX: I48.91 Unspecified atrial fibrillation (principal)

== ENCOUNTER → 2020-11-06 | Outpatient (CLI) | payer MEDICARE ==
[2020-11-06 11:08] LABS: INR 2.03; PROTHROMBIN TIME 23.4 SECONDS (12.5-14.3)
== END ==
LOC: M WUC 08:21
PROVIDERS: ATTEND Physician Assistant
DX: I48.91 Unspecified atrial fibrillation (principal)

== ENCOUNTER → 2020-12-02 | Outpatient (REF) | payer MEDICARE ==
[2020-12-02 11:07] LABS: INR 2.34; PROTHROMBIN TIME 26.2 SECONDS (12.5-14.3)
== END ==
LOC: M LABWUC 09:55
PROVIDERS: ATTEND Physician Assistant
DX: I48.91 Unspecified atrial fibrillation (principal)

== ENCOUNTER → 2020-12-31 | Outpatient (CLI) | payer MEDICARE ==
[~2020-12-31] MED LIST changes: -LISI-898 PO; +LISI5TAB11 PO
[2020-12-31 12:30] LABS: INR 1.62; PROTHROMBIN TIME 19.6 SECONDS (12.5-14.3)
== END ==
LOC: M WUC 09:27
PROVIDERS: ATTEND Physician Assistant
DX: I48.91 Unspecified atrial fibrillation (principal)

== ENCOUNTER → 2021-01-14 | Outpatient (CLI) | payer MEDICARE ==
[~2021-01-14] MED LIST changes: +LISI-898 PO; -LISI5TAB11 PO
[2021-01-14 10:41] LABS: INR 2.81; PROTHROMBIN TIME 30.2 SECONDS (12.5-14.3)
== END ==
LOC: M WUC 08:28
PROVIDERS: ATTEND Physician Assistant
DX: I48.91 Unspecified atrial fibrillation (principal)

== ENCOUNTER → 2021-02-11 | Outpatient (CLI) | payer MEDICARE ==
[2021-02-11 11:21] LABS: INR 1.67; PROTHROMBIN TIME 20.1 SECONDS (12.7-14.5)
== END ==
LOC: M WUC 08:13
PROVIDERS: ATTEND Physician Assistant
DX: I48.91 Unspecified atrial fibrillation (principal)

== ENCOUNTER → 2021-02-18 | Outpatient (CLI) | payer MEDICARE ==
[~2021-02-18] MED LIST changes: -LISI-898 PO; +LISI5TAB11 PO
[2021-02-18 12:34] LABS: INR 2.45
== END ==
LOC: M WUC 08:46
PROVIDERS: ATTEND Physician Assistant
DX: I48.91 Unspecified atrial fibrillation (principal); Z79.01 Long term (current) use of anticoagulants

== ENCOUNTER → 2021-03-10 | Outpatient (CLI) | payer MEDICARE ==
[~2021-03-10] MED LIST changes: +LISI-898 PO; -LISI5TAB11 PO
[2021-03-10 16:48] LABS: INR 3.28; PROTHROMBIN TIME 33.7 SECONDS (12.7-14.5)
== END ==
LOC: M WUC 10:43
PROVIDERS: ATTEND Physician Assistant
DX: I48.91 Unspecified atrial fibrillation (principal); Z79.01 Long term (current) use of anticoagulants

== ENCOUNTER → 2021-03-25 | Outpatient (CLI) | payer MEDICARE ==
[2021-03-25 12:12] LABS: INR 4.25
== END ==
LOC: M WUC 09:29
PROVIDERS: ATTEND Physician Assistant
DX: I48.91 Unspecified atrial fibrillation (principal)

== ENCOUNTER → 2021-04-08 | Outpatient (CLI) | payer MEDICARE ==
[2021-04-08 16:21] LABS: PROTHROMBIN TIME 48.9 SECONDS (12.7-14.5)
[2021-04-08 16:25] LABS: INR 5.35
== END ==
LOC: M WUC 13:06
PROVIDERS: ATTEND Physician Assistant
DX: I48.91 Unspecified atrial fibrillation (principal)

== ENCOUNTER → 2021-04-10 | Outpatient (CLI) | payer MEDICARE ==
[2021-04-10 11:19] LABS: HEMATOCRIT 41.5 % (42.0-52.0); HEMOGLOBIN 13.3 g/dl (13.5-17.5); MEAN CORPUSCULAR HEMOGLOBIN 28.9 pg (27.0-33.0); PLATELET COUNT, AUTOMATED 129 10^3/uL (150-450); RED BLOOD COUNT 4.61 10^6/uL (4.30-6.10); WHITE BLOOD COUNT 7.3 10^3/uL (4.0-10.0)
[2021-04-10 11:30] LABS: INR 2.76; PROTHROMBIN TIME 29.5 SECONDS (12.7-14.5)
[2021-04-10 11:44] LABS: ALBUMIN 3.4 GM/DL (3.2-5.2); BILIRUBIN,TOTAL 1.3 MG/DL (0.2-1.0); CALCIUM LEVEL 9.2 MG/DL (8.8-10.2); CREATININE FOR GFR 1.78 MG/DL (0.70-1.30); GLOMERULAR FILTRATION RATE 40.4 (>42); POTASSIUM SERUM 4.3 MEQ/L (3.5-5.1); TOTAL PROTEIN 6.7 GM/DL (6.4-8.2)
== END ==
LOC: M WUC 09:47
PROVIDERS: ATTEND Internal Medicine Cardiovascular Disease
DX: I48.20 Chronic atrial fibrillation, unspecified (principal); I11.0 Hypertensive heart disease with heart failure; Z79.01 Long term (current) use of anticoagulants; N19 Unspecified kidney failure

== ENCOUNTER → 2021-04-28 | Outpatient (CLI) | payer MEDICARE ==
[2021-04-28 12:06] LABS: INR 2.05; PROTHROMBIN TIME 23.6 SECONDS (12.7-14.5)
== END ==
LOC: M WUC 09:00
PROVIDERS: ATTEND Physician Assistant
DX: I48.91 Unspecified atrial fibrillation (principal); Z79.01 Long term (current) use of anticoagulants

== ENCOUNTER → 2021-05-22 | Outpatient (REF) | payer MEDICARE ==
[~2021-05-22] MED LIST changes: -LISI-898 PO; +LISI5TAB11 PO
[2021-05-22 13:18] LABS: INR 3.54; PROTHROMBIN TIME 35.7 SECONDS (12.7-14.5)
== END ==
LOC: M WUC 12:23
PROVIDERS: ATTEND Physician Assistant
DX: I48.91 Unspecified atrial fibrillation (principal); Z79.01 Long term (current) use of anticoagulants

== ENCOUNTER → 2021-06-09 | Outpatient (REF) | payer MEDICARE ==
[2021-06-09 12:17] LABS: INR 3.88; PROTHROMBIN TIME 38.3 SECONDS (12.7-14.5)
== END ==
LOC: M WUC 11:10
PROVIDERS: ATTEND Physician Assistant
DX: I48.91 Unspecified atrial fibrillation (principal); Z79.01 Long term (current) use of anticoagulants

== ENCOUNTER → 2021-06-18 | Outpatient (CLI) | payer MEDICARE ==
[~2021-06-18] MED LIST changes: +LISI-898 PO; -LISI5TAB11 PO
[2021-06-18 12:54] LABS: INR 2.23; PROTHROMBIN TIME 25.1 SECONDS (12.7-14.5)
== END ==
LOC: M WUC 11:04
PROVIDERS: ATTEND Physician Assistant
DX: I48.20 Chronic atrial fibrillation, unspecified (principal); Z79.01 Long term (current) use of anticoagulants

== ENCOUNTER → 2021-06-30 | Outpatient (REF) | payer MEDICARE ==
[~2021-06-30] MED LIST changes: -LISI-898 PO; +LISI5TAB11 PO
== END ==
LOC: M LAB REF 16:14
PROVIDERS: ATTEND Family Medicine
DX: R74.01 Elevation of levels of liver transaminase levels (principal)

== ENCOUNTER → 2021-07-14 | Outpatient (REF) | payer MEDICARE ==
[2021-07-14 16:21] LABS: INR 1.59; PROTHROMBIN TIME 19.4 SECONDS (12.7-14.5)
== END ==
LOC: M LABWUC 15:40
PROVIDERS: ATTEND Physician Assistant
DX: I48.91 Unspecified atrial fibrillation (principal); Z79.01 Long term (current) use of anticoagulants

== ENCOUNTER → 2021-07-22 | Outpatient (CLI) | payer MEDICARE | LOC: M RAD 08:09 | PROVIDERS: ATTEND Family Medicine | DX: R74.01 Elevation of levels of liver transaminase levels (principal) ==

== ENCOUNTER → 2021-08-04 | Outpatient (CLI) | payer MEDICARE ==
[2021-08-04 12:07] LABS: INR 2.28; PROTHROMBIN TIME 25.5 SECONDS (12.7-14.5)
== END ==
LOC: M WUC 10:30
PROVIDERS: ATTEND Physician Assistant
DX: I48.91 Unspecified atrial fibrillation (principal); Z79.01 Long term (current) use of anticoagulants

== ENCOUNTER → 2021-09-01 | Outpatient (CLI) | payer MEDICARE ==
[2021-09-01 13:02] LABS: INR 2.27; PROTHROMBIN TIME 25.4 SECONDS (12.7-14.5)
== END ==
LOC: M WUC 10:20
PROVIDERS: ATTEND Physician Assistant
DX: I48.91 Unspecified atrial fibrillation (principal)

== ENCOUNTER → 2021-10-01 | Outpatient (CLI) | payer MEDICARE ==
[2021-10-01 12:56] LABS: INR 2.43; PROTHROMBIN TIME 26.8 SECONDS (12.7-14.5)
== END ==
LOC: M WUC 09:08
PROVIDERS: ATTEND Physician Assistant
DX: I48.91 Unspecified atrial fibrillation (principal); Z79.01 Long term (current) use of anticoagulants

== ENCOUNTER → 2021-10-27 | Outpatient (REF) | payer MEDICARE ==
[2021-10-27 10:47] LABS: INR 2.19; PROTHROMBIN TIME 24.7 SECONDS (12.7-14.5)
[2021-10-27 11:50] LABS: CALCIUM LEVEL 9.3 MG/DL (8.8-10.2); CREATININE FOR GFR 1.93 MG/DL (0.70-1.30); GLOMERULAR FILTRATION RATE 36.7 (>42); POTASSIUM SERUM 4.7 MEQ/L (3.5-5.1)
== END ==
LOC: M WUC 10:24
PROVIDERS: ATTEND Physician Assistant
DX: I50.42 Chronic combined systolic (congestive) and diastolic (congestive) heart failure (principal); I48.91 Unspecified atrial fibrillation

== ENCOUNTER → 2022-01-26 | Outpatient (CLI) | payer MEDICARE ==
[2022-01-26 10:59] LABS: CALCIUM LEVEL 8.9 MG/DL (8.8-10.2); CREATININE FOR GFR 1.82 MG/DL (0.70-1.30); GLOMERULAR FILTRATION RATE 39.3 (>42); MAGNESIUM LEVEL 2.3 MG/DL (1.8-2.4); POTASSIUM SERUM 4.4 MEQ/L (3.5-5.1)
== END ==
LOC: M WUC 08:09
PROVIDERS: ATTEND Physician Assistant
DX: I50.42 Chronic combined systolic (congestive) and diastolic (congestive) heart failure (principal); I48.91 Unspecified atrial fibrillation

== ENCOUNTER → 2022-01-26 | Outpatient (CLI) | payer MEDICARE ==
[2022-01-26 10:23] LABS: INR 1.55
== END ==
LOC: M WUC 08:11
PROVIDERS: ATTEND Physician Assistant
DX: I48.91 Unspecified atrial fibrillation (principal)

== ENCOUNTER → 2022-02-26 | Outpatient (CLI) | payer MEDICARE ==
[2022-02-26 11:08] LABS: INR 2.24; PROTHROMBIN TIME 25.1 SECONDS (12.7-14.5)
== END ==
LOC: M WUC 08:08
PROVIDERS: ATTEND Physician Assistant
DX: I48.91 Unspecified atrial fibrillation (principal); Z79.01 Long term (current) use of anticoagulants

== ENCOUNTER → 2022-03-26 | Outpatient (CLI) | payer MEDICARE ==
[2022-03-27 23:11] LABS: PSA % FREE 44.3 % (.); PSA FREE 3.19 ng/mL; PSA TOTAL 7.2 ng/mL (0.0-4.0)
== END ==
LOC: M WUC 08:51
PROVIDERS: ATTEND Urology
DX: R97.20 Elevated prostate specific antigen [PSA] (principal); I48.91 Unspecified atrial fibrillation

== ENCOUNTER → 2022-03-26 | Outpatient (CLI) | payer MEDICARE ==
[2022-03-26 12:40] LABS: INR 2.83; PROTHROMBIN TIME 30.1 SECONDS (12.7-14.5)
== END ==
LOC: M WUC 08:48
PROVIDERS: ATTEND Physician Assistant
DX: I48.91 Unspecified atrial fibrillation (principal)

== ENCOUNTER → 2022-04-23 | Outpatient (CLI) | payer MEDICARE ==
[2022-04-23 12:42] LABS: INR 2.88; PROTHROMBIN TIME 30.6 SECONDS (12.5-14.5)
[2022-04-23 13:19] LABS: CALCIUM LEVEL 8.9 MG/DL (8.8-10.2); CREATININE FOR GFR 1.88 MG/DL (0.70-1.30); GLOMERULAR FILTRATION RATE 37.8 (>42); POTASSIUM SERUM 3.9 MEQ/L (3.5-5.1)
== END ==
LOC: M WUC 09:25
PROVIDERS: ATTEND Physician Assistant
DX: I50.42 Chronic combined systolic (congestive) and diastolic (congestive) heart failure (principal); I48.91 Unspecified atrial fibrillation; Z79.01 Long term (current) use of anticoagulants

== ENCOUNTER → 2022-06-08 | Outpatient (CLI) | payer MEDICARE ==
[2022-06-08 11:07] LABS: INR 3.03; PROTHROMBIN TIME 31.9 SECONDS (12.5-14.5)
== END ==
LOC: M WUC 08:25
PROVIDERS: ATTEND Physician Assistant
DX: I48.91 Unspecified atrial fibrillation (principal); Z79.01 Long term (current) use of anticoagulants

== ENCOUNTER → 2022-06-23 | Outpatient (CLI) | payer MEDICARE ==
[2022-06-23 13:29] LABS: MAGNESIUM LEVEL 1.6 MG/DL (1.8-2.4)
[2022-06-23 13:31] LABS: CALCIUM LEVEL 8.7 MG/DL (8.3-10.6); CREATININE FOR GFR 1.4 MG/DL (0.70-1.30)
== END ==
LOC: M WUC 09:22
PROVIDERS: ATTEND Physician Assistant
DX: I50.42 Chronic combined systolic (congestive) and diastolic (congestive) heart failure (principal); R97.20 Elevated prostate specific antigen [PSA]

== ENCOUNTER → 2022-06-23 | Outpatient (CLI) | payer MEDICARE ==
[2022-06-24 23:06] LABS: PSA % FREE 40.9 % (.); PSA FREE 3.48 ng/mL; PSA TOTAL 8.5 ng/mL (0.0-4.0)
== END ==
LOC: M WUC 09:19
PROVIDERS: ATTEND Urology
DX: R97.20 Elevated prostate specific antigen [PSA] (principal)

== ENCOUNTER → 2022-07-02 | Outpatient (CLI) | payer MEDICARE ==
[2022-07-02 11:06] LABS: INR 2.59; PROTHROMBIN TIME 28.2 SECONDS (12.5-14.5)
== END ==
LOC: M WUC 08:54
PROVIDERS: ATTEND Physician Assistant
DX: I48.91 Unspecified atrial fibrillation (principal)

== ENCOUNTER → 2022-07-29 | Outpatient (CLI) | payer MEDICARE ==
[2022-07-29 10:20] LABS: INR 2.91; PROTHROMBIN TIME 30.9 SECONDS (12.5-14.5)
== END ==
LOC: M WUC 08:00
PROVIDERS: ATTEND Physician Assistant
DX: I48.91 Unspecified atrial fibrillation (principal)

== ENCOUNTER → 2022-08-04 | Outpatient (REF) | payer MEDICARE | LOC: M SMT 12:41 | PROVIDERS: ATTEND Urology | DX: R97.20 Elevated prostate specific antigen [PSA] (principal) ==

== ENCOUNTER → 2022-08-26 | Outpatient (REF) | payer MEDICARE ==
[2022-08-26 12:58] LABS: INR 2.39; PROTHROMBIN TIME 26.5 SECONDS (12.5-14.5)
== END ==
LOC: M LABWUC 11:57
PROVIDERS: ATTEND Physician Assistant
DX: I48.91 Unspecified atrial fibrillation (principal)

== ENCOUNTER → 2022-09-23 | Outpatient (CLI) | payer MEDICARE ==
[2022-09-23 13:29] LABS: INR 1.86; PROTHROMBIN TIME 21.8 SECONDS (12.5-14.5)
== END ==
LOC: M WUC 09:48
PROVIDERS: ATTEND Internal Medicine Cardiovascular Disease
DX: I48.91 Unspecified atrial fibrillation (principal)

== ENCOUNTER → 2022-10-09 | Outpatient (REF) | payer MEDICARE ==
[2022-10-09 18:37] LABS: CREATININE,RANDOM URINE 200.5 MG/DL
[2022-10-09 18:39] LABS: TOTAL PROTEIN,RANDOM URINE 149.5 MG/DL (0.0-14.0)
== END ==
LOC: M LAB REF 16:43
PROVIDERS: ATTEND Nurse Practitioner Family
DX: N18.32 Chronic kidney disease, stage 3b (principal); R80.9 Proteinuria, unspecified

== ENCOUNTER → 2022-10-23 | Outpatient (CLI) | payer MEDICARE ==
[2022-10-23 12:47] LABS: INR 2.76; PROTHROMBIN TIME 29.6 SECONDS (12.5-14.5)
== END ==
LOC: M WUC 09:02
PROVIDERS: ATTEND Internal Medicine Cardiovascular Disease
DX: I48.91 Unspecified atrial fibrillation (principal)

== ENCOUNTER → 2022-11-23 | Outpatient (REF) | payer MEDICARE ==
[2022-11-23 13:33] LABS: INR 2.05; PROTHROMBIN TIME 23.5 SECONDS (12.5-14.5)
== END ==
LOC: M LAB REF 12:32
PROVIDERS: ATTEND Physician Assistant
DX: I48.91 Unspecified atrial fibrillation (principal)

== ENCOUNTER → 2022-12-23 | Outpatient (CLI) | payer MEDICARE ==
[2022-12-23 10:33] LABS: INR 2.12; PROTHROMBIN TIME 24.1 SECONDS (12.5-14.5)
== END ==
LOC: M WUC 08:11
PROVIDERS: ATTEND Physician Assistant
DX: I48.91 Unspecified atrial fibrillation (principal)

== ENCOUNTER → 2023-01-21 | Outpatient (CLI) | payer MEDICARE ==
[2023-01-21 12:59] LABS: INR 1.61; PROTHROMBIN TIME 19.4 SECONDS (12.5-14.5)
== END ==
LOC: M WUC 01-20 08:13
PROVIDERS: ATTEND Physician Assistant
DX: I48.91 Unspecified atrial fibrillation (principal)

== ENCOUNTER → 2023-02-01 | Outpatient (CLI) | payer MEDICARE ==
[2023-02-01 09:56] LABS: INR 2.03; PROTHROMBIN TIME 22.4 SECONDS (12.5-14.5)
== END ==
LOC: M WUC 07:59
PROVIDERS: ATTEND Internal Medicine Cardiovascular Disease
DX: I48.91 Unspecified atrial fibrillation (principal)

== ENCOUNTER → 2023-03-05 | Outpatient (CLI) | payer MEDICARE ==
[2023-03-06 21:11] LABS: PSA % FREE 54.3 % (.); PSA FREE 2.17 ng/mL
== END ==
LOC: M WUC 08:01
PROVIDERS: ATTEND Urology
DX: R97.20 Elevated prostate specific antigen [PSA] (principal); I48.91 Unspecified atrial fibrillation

== ENCOUNTER → 2023-05-04 | Outpatient (CLI) | payer MEDICARE ==
[~2023-05-04] MED LIST changes: +GLIP5TAB17 PO; -GLIP5TAB8 PO
[2023-05-04 10:50] LABS: INR 1.91; PROTHROMBIN TIME 21.2 SECONDS (12.5-14.5)
== END ==
LOC: M WUC 08:04
PROVIDERS: ATTEND Physician Assistant
DX: I48.91 Unspecified atrial fibrillation (principal); Z79.01 Long term (current) use of anticoagulants

== ENCOUNTER → 2023-06-02 | Outpatient (REF) | payer MEDICARE ==
[2023-06-02 11:00] LABS: INR 3.37; PROTHROMBIN TIME 32.8 SECONDS (12.5-14.5)
== END ==
LOC: M LABWUC 09:29
PROVIDERS: ATTEND Physician Assistant
DX: I48.91 Unspecified atrial fibrillation (principal)

== ENCOUNTER → 2023-06-22 | Outpatient (CLI) | payer MEDICARE ==
[2023-06-22 13:40] LABS: INR 2.44; PROTHROMBIN TIME 25.7 SECONDS (12.5-14.5)
== END ==
LOC: M WUC 10:51
PROVIDERS: ATTEND Physician Assistant
DX: I48.91 Unspecified atrial fibrillation (principal)

== ENCOUNTER → 2023-07-21 | Outpatient (CLI) | payer MEDICARE ==
[2023-07-21 10:59] LABS: INR 2.54; PROTHROMBIN TIME 26.4 SECONDS (12.5-14.5)
== END ==
LOC: M WUC 08:05
PROVIDERS: ATTEND Physician Assistant
DX: I48.91 Unspecified atrial fibrillation (principal); Z79.02 Long term (current) use of antithrombotics/antiplatelets

== ENCOUNTER → 2023-07-21 | Outpatient (CLI) | payer MEDICARE | LOC: M WUC 08:07 | PROVIDERS: ATTEND Urology | DX: R97.20 Elevated prostate specific antigen [PSA] (principal) ==

== ENCOUNTER → 2023-08-17 | Outpatient (CLI) | payer MEDICARE ==
[2023-08-17 10:02] LABS: INR 2.9; PROTHROMBIN TIME 29.2 SECONDS (12.5-14.5)
== END ==
LOC: M WUC 08:06
PROVIDERS: ATTEND Physician Assistant
DX: I48.91 Unspecified atrial fibrillation (principal); Z79.02 Long term (current) use of antithrombotics/antiplatelets

== ENCOUNTER → 2023-09-15 | Outpatient (REF) | payer MEDICARE ==
[2023-09-15 10:20] LABS: INR 1.99; PROTHROMBIN TIME 21.9 SECONDS (12.5-14.5)
== END ==
LOC: M LABWUC 09:32
PROVIDERS: ATTEND Physician Assistant
DX: I48.91 Unspecified atrial fibrillation (principal); Z79.02 Long term (current) use of antithrombotics/antiplatelets

== ENCOUNTER → 2023-10-13 | Outpatient (REF) | payer MEDICARE | LOC: M LAB REF 12:13 | PROVIDERS: ATTEND Family Medicine | DX: I48.20 Chronic atrial fibrillation, unspecified (principal) ==

== ENCOUNTER → 2023-10-18 | Outpatient (CLI) | payer MEDICARE ==
[2023-10-18 10:45] LABS: INR 2.11; PROTHROMBIN TIME 22.9 SECONDS (12.5-14.5)
== END ==
LOC: M WUC 08:15
PROVIDERS: ATTEND Physician Assistant
DX: I48.91 Unspecified atrial fibrillation (principal); Z79.02 Long term (current) use of antithrombotics/antiplatelets

== ENCOUNTER → 2023-11-16 | Outpatient (REF) | payer MEDICARE ==
[2023-11-16 13:30] LABS: INR 1.94; PROTHROMBIN TIME 21.5 SECONDS (12.5-14.5)
== END ==
LOC: M LABWUC 12:15
PROVIDERS: ATTEND Physician Assistant
DX: I48.91 Unspecified atrial fibrillation (principal); Z79.02 Long term (current) use of antithrombotics/antiplatelets

== ENCOUNTER → 2023-12-14 | Outpatient (CLI) | payer MEDICARE ==
[2023-12-14 10:55] LABS: INR 2.63; PROTHROMBIN TIME 27.2 SECONDS (12.5-14.5)
== END ==
LOC: M WUC 08:47
PROVIDERS: ATTEND Physician Assistant
DX: I48.91 Unspecified atrial fibrillation (principal); Z79.02 Long term (current) use of antithrombotics/antiplatelets

== ENCOUNTER → 2024-01-10 | Outpatient (CLI) | payer MEDICARE ==
[2024-01-10 10:29] LABS: INR 3.01; PROTHROMBIN TIME 30.1 SECONDS (12.5-14.5)
== END ==
LOC: M WUC 08:04
PROVIDERS: ATTEND Physician Assistant
DX: I48.91 Unspecified atrial fibrillation (principal); Z79.02 Long term (current) use of antithrombotics/antiplatelets

== ENCOUNTER → 2024-02-22 | Outpatient (CLI) | payer MEDICARE ==
[2024-02-22 10:35] LABS: INR 3.29; PROTHROMBIN TIME 32.2 SECONDS (12.5-14.5)
== END ==
LOC: M WUC 08:40
PROVIDERS: ATTEND Physician Assistant
DX: I48.91 Unspecified atrial fibrillation (principal); Z79.02 Long term (current) use of antithrombotics/antiplatelets

== ENCOUNTER → 2024-02-29 | Outpatient (CLI) | payer MEDICARE ==
[2024-02-29 10:33] LABS: INR 1.91; PROTHROMBIN TIME 21.2 SECONDS (12.5-14.5)
== END ==
LOC: M WUC 08:02
PROVIDERS: ATTEND Internal Medicine Cardiovascular Disease
DX: I48.91 Unspecified atrial fibrillation (principal); Z79.02 Long term (current) use of antithrombotics/antiplatelets

== ENCOUNTER → 2024-03-29 | Outpatient (CLI) | payer MEDICARE ==
[2024-03-29 09:43] LABS: INR 2.86
== END ==
LOC: M WUC 08:04
PROVIDERS: ATTEND Physician Assistant
DX: I48.91 Unspecified atrial fibrillation (principal); Z79.02 Long term (current) use of antithrombotics/antiplatelets

== ENCOUNTER → 2024-04-24 | Outpatient (CLI) | payer MEDICARE ==
[2024-04-24 10:50] LABS: INR 2.87
== END ==
LOC: M WUC 08:06
PROVIDERS: ATTEND Physician Assistant
DX: I48.91 Unspecified atrial fibrillation (principal); Z79.02 Long term (current) use of antithrombotics/antiplatelets

== ENCOUNTER → 2024-05-25 | Outpatient (CLI) | payer MEDICARE ==
[2024-05-25 10:08] LABS: INR 3.16; PROTHROMBIN TIME 32.3 SECONDS (12.5-14.5)
== END ==
LOC: M WUC 08:38
PROVIDERS: ATTEND Registered Nurse
DX: I48.91 Unspecified atrial fibrillation (principal); Z79.02 Long term (current) use of antithrombotics/antiplatelets

== ENCOUNTER → 2024-06-12 | Outpatient (REF) | payer MEDICARE ==
[2024-06-12 10:08] LABS: INR 2.9; PROTHROMBIN TIME 30.3 SECONDS (12.5-14.5)
== END ==
LOC: M LABWUC 09:33
PROVIDERS: ATTEND Physician Assistant
DX: I48.91 Unspecified atrial fibrillation (principal); Z79.02 Long term (current) use of antithrombotics/antiplatelets

== ENCOUNTER → 2024-06-26 | Outpatient (CLI) | payer MEDICARE ==
[2024-06-26 09:39] LABS: INR 2.31; PROTHROMBIN TIME 25.4 SECONDS (12.5-14.5)
== END ==
LOC: M WUC 08:08
PROVIDERS: ATTEND Physician Assistant
DX: I48.91 Unspecified atrial fibrillation (principal)

== ENCOUNTER → 2024-07-31 | Outpatient (CLI) | payer MEDICARE ==
[2024-07-31 09:55] LABS: INR 2.82; PROTHROMBIN TIME 29.6 SECONDS (12.5-14.5)
== END ==
LOC: M WUC 08:04
PROVIDERS: ATTEND Physician Assistant
DX: I48.91 Unspecified atrial fibrillation (principal); Z79.02 Long term (current) use of antithrombotics/antiplatelets

== ENCOUNTER → 2024-08-28 | Outpatient (REF) | payer MEDICARE | LOC: M LABWUC 12:00 | PROVIDERS: ATTEND Urology | DX: R97.20 Elevated prostate specific antigen [PSA] (principal); I48.91 Unspecified atrial fibrillation; Z79.02 Long term (current) use of antithrombotics/antiplatelets ==

== ENCOUNTER → 2024-08-28 | Outpatient (REF) | payer MEDICARE ==
[2024-08-28 12:20] LABS: INR 2.65; PROTHROMBIN TIME 28.2 SECONDS (12.5-14.5)
== END ==
LOC: M LABWUC 11:59
PROVIDERS: ATTEND Physician Assistant
DX: I48.91 Unspecified atrial fibrillation (principal); Z79.02 Long term (current) use of antithrombotics/antiplatelets

== ENCOUNTER → 2024-09-26 | Outpatient (CLI) | payer MEDICARE ==
[2024-09-26 12:09] LABS: INR 2.06; PROTHROMBIN TIME 23.4 SECONDS (12.5-14.5)
== END ==
LOC: M WUC 08:03
PROVIDERS: ATTEND Physician Assistant
DX: I48.91 Unspecified atrial fibrillation (principal); Z79.02 Long term (current) use of antithrombotics/antiplatelets

== ENCOUNTER → 2024-10-24 | Outpatient (REF) | payer MEDICARE ==
[2024-10-24 12:30] LABS: INR 1.39; PROTHROMBIN TIME 17.3 SECONDS (12.5-14.5)
== END ==
LOC: M LABWUC 12:06
PROVIDERS: ATTEND Registered Nurse
DX: Z79.02 Long term (current) use of antithrombotics/antiplatelets (principal); I48.91 Unspecified atrial fibrillation

== ENCOUNTER → 2024-11-07 | Outpatient (CLI) | payer MEDICARE ==
[2024-11-07 12:25] LABS: INR 1.6; PROTHROMBIN TIME 19.2 SECONDS (12.5-14.5)
== END ==
LOC: M WUC 08:33
PROVIDERS: ATTEND Physician Assistant
DX: I48.91 Unspecified atrial fibrillation (principal); Z79.02 Long term (current) use of antithrombotics/antiplatelets

== ENCOUNTER → 2024-12-25 | Outpatient (REF) | payer MEDICARE ==
[2024-12-25 12:12] LABS: INR 2.67
== END ==
LOC: M LABWUC 11:46
PROVIDERS: ATTEND Internal Medicine Cardiovascular Disease
DX: I48.91 Unspecified atrial fibrillation (principal); Z79.02 Long term (current) use of antithrombotics/antiplatelets

== ENCOUNTER 2024-12-28 11:59 | Emergency (ER) | payer MEDICARE ==
[~2024-12-28] VITALS: Ht 170.2 cm; Wt 105.2 kg
[2024-12-28 12:33] LABS: BASO # 0.1 10^3/uL (0.0-0.2); BASO % 1.1 % (0.0-1.0); EOS # 0.4 10^3/uL (0.0-0.5); EOS % 3.4 % (0.0-3.0); LYMPH # 1.9 10^3/uL (1.5-5.0); LYMPH % 18.4 % (24.0-44.0); MONO # 1.1 10^3/uL (0.0-0.8); MONO % 10.8 % (2.0-8.0); NEUTROPHILS # 6.9 10^3/uL (1.5-8.5); NEUTROPHILS % 65.9 % (36.0-66.0); PLATELET COUNT, AUTOMATED 131 10^3/uL (150-450)
[2024-12-28 13:02] LABS: ALT/SGPT 17.0 U/L (7.0-40); AST/SGOT 29.0 U/L (<34); CALCIUM LEVEL 8.7 MG/DL (8.3-10.6); CARBON DIOXIDE LEVEL 23.0 MMOL/L (20-31); CHLORIDE LEVEL 110.0 MMOL/L (98-107); CK-MB VALUE MASS 3.1 NG/ML (<3.6); CPK CREATINE PHOSPHOKINASE 264.0 U/L (46-171); CREATININE FOR GFR 1.71 MG/DL (0.70-1.30); GLOMERULAR FILTRATION RATE 41.5 (>42); MB/CK RELATIVE INDEX 1.17 (< OR =4); POTASSIUM SERUM 3.7 MMOL/L (3.5-5.1); SODIUM LEVEL 148.0 MMOL/L (136-145)
[2024-12-28 13:48] LABS: APPEARANCE, URINE CLEAR (CLEAR); BACTERIA, URINE AUTO NEGATIVE (NEGATIVE); BILIRUBIN, URINE AUTO NEGATIVE (NEGATIVE); BLOOD, URINE BLOOD NEGATIVE (NEGATIVE); GLUCOSE, URINE (UA) AUTO 3+ mg/dL (NEGATIVE); KETONE, URINE AUTO NEGATIVE (NEGATIVE); LEUKOCYTE ESTERASE, URINE AUTO NEGATIVE (NEGATIVE); MUCUS, URINE SMALL (NEGATIVE); NITRITE, URINE AUTO NEGATIVE (NEGATIVE); PROTEIN, URINE AUTO 1+ mg/dL (NEGATIVE); RBC, URINE AUTO 0 /HPF (0-3); SPECIFIC GRAVITY URINE AUTO 1.008 (1.002-1.035); SQUAMOUS EPITHELIAL CELL UR AU 0 /HPF (0-6); UROBILINOGEN, URINE AUTO 0.2 mg/dL (0.0-2.0); WBC, URINE AUTO 1 /HPF (0-3)
[2024-12-28] MEDS: cefTRIAXone SOD 2 GM in DEXTROSE 5% (D5W) ADV/MINI-BAG 50 ML IV ONE (13:53)
[2024-12-28] MEDS: NS (Normal Saline) 0.9% 1,000 ML IV ONE (13:53)
[2024-12-28 14:30] LABS: CK-MB VALUE MASS 5.7 NG/ML (<3.6)
[2024-12-28 14:33] LABS: CPK CREATINE PHOSPHOKINASE 276.0 U/L (46-171); MB/CK RELATIVE INDEX 2.06 (< OR =4)
[2024-12-28 15:27] LABS: INR 1.68
[2024-12-28 16:10] VITALS: BP 114/67; TEMP 97.1; O2SAT 99
[2024-12-28] MEDS: HEPARIN DRIP 25,000 UNITS in IV 1 EA IV SCH (16:10)
== END 2024-12-28 16:13 | disposition short-term general hospital (02) ==
LOC: M ED 11:59 → EDBD 11:59 → M ED 16:13
DX: I21.4 Non-ST elevation (NSTEMI) myocardial infarction (principal); J91.8 Pleural effusion in other conditions classified elsewhere; I48.91 Unspecified atrial fibrillation; E11.9 Type 2 diabetes mellitus without complications; I10 Essential (primary) hypertension; Z79.1 Long term (current) use of non-steroidal anti-inflammatories (NSAID); Z79.84 Long term (current) use of oral hypoglycemic drugs; Z79.899 Other long term (current) drug therapy; Z79.01 Long term (current) use of anticoagulants; Z79.810 Long term (current) use of selective estrogen receptor modulators (SERMs)
CPT/HCPCS: 36415; 71045; 80048; 80076; 81001; 82550; 82553; 83605; 83690; 83880; 84145; 84443; 84484; 85025; 85610; 85730; 87040; 87088; 87186; 87486; 87581; 87633; 87798; 93005; 93041; 94760; 96365; 96366; 96375; 99285; J0696